=== PATIENT | female | born 1980 | race Caucasian/White ===

== ENCOUNTER 2019-06-05 00:46 | Day surgery (SDC) | payer MEDICARE, MEDICAID, SELFPAY ==
--- NOTE | 2019-06-04 17:43 | WPDANESEPP ---
Anes - Eval Pre Procedure Procedure: Operation Date: 06/05/19 10:30 Proposed Procedures p Excisional Biopsy Left Axillary Cystic Mass - Taty Alves MD Date/Time: 06/04/19 17:43 Pre Op Diagnosis: Left Axillary Mass Patient Data Age: 39 Gender: F Height: Weight: Allergies Allergy/AdvReac Type Severity Reaction Status Date / Time Penicillins Allergy Intermediate HIVES Verified 06/04/19 08:29 DUST MITES Allergy Mild unknown Uncoded 01/21/19 11:39 POLLENS Allergy Mild unknown Uncoded 01/21/19 11:39 [place] Allergy Mild unknown Uncoded 01/21/19 11:39 Home Medications Medication Instructions Recorded Confirmed Type glipizide 10 mg tablet 10 mg PO BID #180 tablet 01/09/19 05/31/19 Rx blood sugar diagnostic #10 each 01/17/19 05/31/19 History hydrocodone 5 mg-acetaminophen 325 1 tablet PO Q8H PRN 01/17/19 05/31/19 History mg tablet dulaglutide 1.5 mg/0.5 mL 1.5 mg SUB-Q WEEKLY ml 01/21/19 05/31/19 History subcutaneous pen injector gabapentin 300 mg capsule 300 mg PO QID PRN #240 cap 01/22/19 05/31/19 Rx blood-glucose meter,continuous #1 each 04/15/19 Rx cephalexin 500 mg capsule 1,000 mg PO Q12H #40 cap 05/31/19 05/31/19 Rx sulfamethoxazole 800 2 tablet PO Q12H 10 Days #40 tablet 05/31/19 05/31/19 Rx mg-trimethoprim 160 mg tablet Patient hx anesthesia problems: none Family hx anesthesia problems: none PMFSH Past Medical History Medical History Axillary mass Chronic back pain Diabetes Narcolepsy cataplexy syndrome ALAN (obstructive sleep apnea) Restless leg syndrome Smoker Surgical History Surgical History H/O tubal ligation History of appendectomy History of cholecystectomy History of tonsillectomy Family History Family History Father Heart disease Diabetes mellitus Mother Hypertension Unknown Hypertension Diabetes mellitus Social History Social History (Updated 06/04/19 @ 08:34 by Kristan Milian) Social History: pt smoke half a pack a day Smoking packs per day: 1 Smoking cigarettes per day: 20.0 Years smoked: 21 Smoking pack-years: 21.00 Smoking status: Current every day smoker Alcohol intake: never Substance use: never Substance use type: marijuana Additional occupation/education comments: disabled Exam Day of Procedure 06/04/19 17:43
[2019-06-05 08:30] VITALS: BP 125/73; PULSE 83; RESP 20; TEMP 36.3; O2SAT 100
--- NOTE | 2019-06-05 08:31 | ECG_ITS ---
Measurements Intervals [place] Rate: 82 P: 26 MI: 166 QRS: 28 QRSD: 105 T: 34 QT: 390 QTc: 457 Interpretive Statements SINUS RHYTHM DELAYED PRECORDIAL R/S TRANSITION BASELINE WANDER- V6 BORDERLINE ECG Electronically Signed On 06-05-2019 9:07:51 CDT by Luis Carlos Parikh D.O.
[2019-06-05 08:47] VITALS: BMI 35.1
[2019-06-05 09:15] LABS: Glucose Point of Care 295 (65-105)
[2019-06-05 09:32] LABS: Blood Urea Nitrogen 10 mg/dL (7-17); Calcium 8.9 mg/dL (8.4-10.2); Carbon Dioxide 24 mmol/L (22-30); Chloride 104 mmol/L (98-107); Estimated CRCL calculation 196 ml/min; Estimated Glomerular Filt Rate > 60; Glucose 310 mg/dL (65-105); Potassium 4.4 mmol/L (3.4-5.0); Sodium 135 mmol/L (137-145)
[2019-06-05] MEDS: LACTATED RINGERS 1,000 ML 30 ML IV CONT (09:51)
--- NOTE | 2019-06-05 10:05 | WPDANESEFPP ---
Anes - Eval Final PreProcedure Day of Procedure 06/05/19 10:05 Patient weight: obese Heart: regular rate and rhythm Lungs: decreased breath sounds Airway: Mallampati scale class II Neurological: alert and oriented Last oral intake: >/= 8 hours ASA classification: III Emergent: no Anesthetic plan: proceed Anesthesia type and monitoring: general GIVS and standard monitoring Informed Consent: The patient's anesthetic plan and its attendant risks and benefits were discussed with the patient/family/POA. Questions were solicited and answers provided to the satisfaction of the patient/family/POA.
--- NOTE | 2019-06-05 10:45 | WPDHPUPDATE1 ---
History and Physical Update Update Date/Time: 06/05/19 10:45 History and Physical has been reviewed, including an updated exam of the patient. There are NO changes in the patient's condition. Risks, benefits, and alternatives have been discussed and questions answered. Patient agrees to proceed with procedure.
[2019-06-05] MEDS: ceFAZolin 2 GM/D5W 50 ML 2 GM/50 ML BAG IVPB (10:49)
--- NOTE | 2019-06-05 11:16 | PM.PROC ---
Procedure Note - Detailed Date of procedure: 06/05/19 Pre-op diagnosis: Left Axillary Mass Post-op diagnosis: same Procedure performed: excisional biopsy left axillary mass measuring 3x2 cm Description of procedure: The patient was taken into the operating room and placed in the supine position. After adequate induction of general anesthesia, the patient was prepped and draped in the normal sterile fashion. A time-out was then done to verify the patient's identity as well as the procedure being performed. I began by localizing the area in and around the cystic mass in the left axilla. Once the area was locally anesthetized, I made an elliptical incision around this mass at the level of the dermis. The incision was then carried down into the subcutaneous tissue, where the majority of the mass was located. I was able to get around the mass in full and excise the cystic mass. The measurements of the specimen were approximately 4 x 2 cm. It will be sent to pathology for further review. I then copiously irrigated the wound. Hemostasis was gained with the Bovie cautery. The subcutaneous tissue was closed with 3 0 Vicryl suture. The skin was closed with 4 O Monocryl subcuticular suture. The patient tolerated the procedure and was awake and alert in the operating room postop. She was sent to the recovery room in stable condition. Anesthesia: MAC and local Surgeon: Taty Alves MD Estimated blood loss (mL): 5 Drains: No Packing: No Pathology: yes Complications: No immediate complications Condition: stable Disposition: PACU Findings: cystic mass L axilla
[2019-06-05] MEDS: BUPIVACAINE/EPINEPHRINE 0.5% 30 ML VIAL 20 ML INFILTRATE (11:18)
--- NOTE | 2019-06-05 11:20 | SUR.OPER ---
ebl:5CC
[2019-06-05 11:25] VITALS: BP 119/69; PULSE 82; RESP 20; O2SAT 93
[2019-06-05 11:29] LABS: Glucose Point of Care 286 (65-105)
[2019-06-05 11:55] VITALS: BP 130/86; PULSE 75; RESP 16
== END 2019-06-05 12:16 | disposition home or self-care (01) ==
PROVIDERS: Anesthesiology; PCP Family Medicine; Visit Provider Surgery
PROC: (CPT 11406; principal; 2019-06-05 10:30)
DX: L02.412 Cutaneous abscess of left axilla (principal); E11.9 Type 2 diabetes mellitus without complications; G47.33 Obstructive sleep apnea (adult) (pediatric); G25.81 Restless legs syndrome; G47.411 Narcolepsy with cataplexy; Z79.84 Long term (current) use of oral hypoglycemic drugs; F17.210 Nicotine dependence, cigarettes, uncomplicated
CPT/HCPCS: 11406; 12032; 36415; 80048; 88304; 88305; 93005; J0690; J2250; J2405; J2704; J3010; J7120

== ENCOUNTER 2020-02-10 09:53 | Outpatient (CLI) | payer MEDICARE, MEDICAID, SELFPAY ==
[2020-02-10 16:59] LABS: Basophils Absolute Auto 0.1 K/mm3 (0.0-0.1); Basophils Percent Auto 0.8 % (0.2-1.2); Eosinophils Absolute Auto 0.2 K/mm3 (0-0.3); Eosinophils Percent Auto 1.9 % (0-4.4); Hematocrit 43.7 % (37.0-47.0); Hemoglobin 14.7 g/dL (12.0-15.0); Immature Granulocyte Absolute 0.06 K/mm3 (0.00-0.031); Immature Granulocyte Percent A 0.6 % (0-0.5); Lymphocytes Absolute Auto 2.09 K/mm3 (0.9-3.2); Lymphocytes Percent Auto 19.9 % (18.3-44.2); Mean Corpuscular HGB Conc 33.6 g/dl (32-36); Mean Corpuscular Hemoglobin 30.6 pg (26-34); Mean Corpuscular Volume 90.9 fl (80-100); Mean Platelet Volume 10.8 fl (7.4-10.4); Monocytes Absolute Auto 0.5 K/mm3 (0.1-0.6); Monocytes Percent Auto 4.9 % (2.6-8.5); Neutrophils Absolute Auto 7.6 K/mm3 (1.3-6.7); Neutrophils Percent Auto 71.9 % (45.5-73.1); Platelet Count Result 249 k/mm3 (150-375); Red Blood Count 4.81 M/mm3 (4.2-5.4); Red Cell Distribution Width 14.6 % (11.5-14.5); White Blood Count 10.5 K/mm3 (4.5-10.0)
[2020-02-10 17:05] LABS: Alanine Aminotransferase 33 U/L (4-35); Albumin Level 3.9 g/dL (3.5-5.1); Alkaline Phosphatase 74 U/L (38-126); Anion Gap 10 mmol/L (8-16); Aspartate Amino Transferase 34 U/L (14-36); Bilirubin,Total 0.5 mg/dL (0.2-1.3); Blood Urea Nitrogen 9 mg/dL (7-17); Carbon Dioxide 27 mmol/L (22-30); Chloride 101 mmol/L (98-107); Cholesterol 129 mg/dL (0-200); Estimated Glomerular Filt Rate > 60; Glucose 259 mg/dL (65-105); HDL Direct 44 mg/dL; Potassium 4.1 mmol/L (3.4-5.0); Sodium 138 mmol/L (137-145); Triglycerides 143 mg/dL (<150)
[2020-02-10 17:07] LABS: Hemoglobin A1C 12.1 % (<5.7)
[2020-02-10 17:11] LABS: Add Urine Microscopic? YES; Appearance Urine Cloudy (Clear); Bacteria Urine Trace /hpf; Bilirubin Urine Negative (Negative); Blood Urine 1+ (Negative); Budding Yeast Urine Present /hpf; Color Urine Yellow (Yellow); Glucose Urine UA 3+ mg/dL (Negative); Ketones Urine Trace mg/dL (Negative); Leukocyte Esterase Ur 3+ LEU/UL (Negative); Nitrate Urine Positive (Negative); Protein Urine 1+ mg/dL (Negative); Squamous Epithelial Cell Urine Few /hpf (Few); Urobilinogen Urine Negative mg/dL (<2.0); WBC Clumps Urine Present /HPF; WBC Urine >75 /hpf
[2020-02-10 17:13] LABS: Specific Grav Ur 1.031 (1.001-1.035)
[2020-02-10 17:17] LABS: LDL Cholesterol Direct 76 mg/dL
[2020-02-10 17:19] LABS: Iron 73 ug/dL (37-170)
[2020-02-10 17:31] LABS: Percent Iron Saturation 21 % (20-50); Vitamin D 25 Hydroxy 19.7 ng/mL
[2020-02-10 17:36] LABS: Thyroid Stimulating Hormone 0.508 uIU/mL (0.465-4.680)
[2020-02-10 17:59] LABS: Creatinine Urine 50.4 mg/dL
[2020-02-10 18:04] LABS: MALB Creatinine Ratio 120.6 mg/g (0-30); Microalbumin Urine Random 60.8 mg/L (0-16.7)
[2020-02-10 18:10] LABS: Folic Acid 10.9 ng/mL (2.76->20)
[2020-02-15 06:35] LABS: C-Peptide 4.43 ng/mL (0.80-3.85); FSH 8.5 mIU/mL (***)
== END 2020-02-10 09:54 | disposition home or self-care (01) ==
PROVIDERS: PCP Family Medicine; Visit Provider Family Medicine
DX: Z79.899 Other long term (current) drug therapy (principal); B96.89 Other specified bacterial agents as the cause of diseases classified elsewhere; E11.42 Type 2 diabetes mellitus with diabetic polyneuropathy; G47.10 Hypersomnia, unspecified; J30.2 Other seasonal allergic rhinitis; J98.01 Acute bronchospasm; J01.90 Acute sinusitis, unspecified; L72.9 Follicular cyst of the skin and subcutaneous tissue, unspecified; R79.89 Other specified abnormal findings of blood chemistry
CPT/HCPCS: 36415; 80053; 80061; 81001; 82043; 82306; 82607; 82746; 83001; 83036; 83540; 83550; 84443; 84681; 85025; 87077; 87086; 87088; 87186

== ENCOUNTER 2020-09-02 09:43 | Outpatient (CLI) | payer MEDICARE, MEDICAID, SELFPAY ==
[2020-09-02 19:01] LABS: Add Urine Microscopic? YES; Appearance Urine Clear (Clear); Bilirubin Urine Negative (Negative); Blood Urine Negative (Negative); Color Urine Yellow (Yellow); Glucose Urine UA 3+ mg/dL (Negative); Ketones Urine 1+ mg/dL (Negative); Leukocyte Esterase Ur Negative LEU/UL (NEGATIVE); Nitrate Urine Negative (Negative); Protein Urine Negative (Negative); RBC Urine 0-2 /hpf (0-2); Squamous Epithelial Cell Urine Few /hpf (Few); Urobilinogen Urine Negative mg/dL (<2.0); WBC Urine 0-3 /hpf (0-3)
[2020-09-02 19:04] LABS: Basophils Absolute Auto 0.1 K/mm3 (0.0-0.1); Basophils Percent Auto 0.7 % (0.2-1.2); Eosinophils Absolute Auto 0.1 K/mm3 (0-0.3); Eosinophils Percent Auto 1.3 % (0-4.4); Hematocrit 44.1 % (37.0-47.0); Immature Granulocyte Absolute 0.04 K/mm3 (0.00-0.031); Immature Granulocyte Percent A 0.4 % (0-0.5); Lymphocytes Absolute Auto 2.16 K/mm3 (0.9-3.2); Lymphocytes Percent Auto 21.6 % (18.3-44.2); Mean Corpuscular HGB Conc 31.7 g/dl (32-36); Mean Corpuscular Hemoglobin 29.4 pg (26-34); Mean Corpuscular Volume 92.5 fl (80-100); Mean Platelet Volume 10.3 fl (7.4-10.4); Monocytes Absolute Auto 0.6 K/mm3 (0.1-0.6); Monocytes Percent Auto 5.5 % (2.6-8.5); Neutrophils Percent Auto 70.5 % (45.5-73.1); Platelet Count Result 246 k/mm3 (150-375); Red Blood Count 4.77 M/mm3 (4.2-5.4)
[2020-09-02 19:07] LABS: Cholesterol 113 mg/dL (0-200); HDL Direct 42 mg/dL; Lipase 152 U/L (23-300); Triglycerides 73 mg/dL (<150)
[2020-09-02 19:10] LABS: Alanine Aminotransferase 22 U/L (4-35); Albumin Level 4.1 g/dL (3.5-5.1); Alkaline Phosphatase 66 U/L (38-126); Anion Gap 11 mmol/L (8-16); Aspartate Amino Transferase 24 U/L (14-36); Bilirubin,Total 0.7 mg/dL (0.2-1.3); Blood Urea Nitrogen 12 mg/dL (7-17); Calcium 9.4 mg/dL (8.4-10.2); Carbon Dioxide 25 mmol/L (22-30); Chloride 101 mmol/L (98-107); Estimated Glomerular Filt Rate > 60; Glucose 207 mg/dL (65-110); Sodium 137 mmol/L (137-145)
[2020-09-02 19:18] LABS: LDL Cholesterol Direct 57 mg/dL
[2020-09-02 19:21] LABS: Creatinine Urine 77.4 mg/dL
[2020-09-02 19:22] LABS: Vitamin D 25 Hydroxy 26.1 ng/mL
[2020-09-02 19:25] LABS: MALB Creatinine Ratio 15.4 mg/g (0-30); Microalbumin Urine Random 11.9 mg/L (0-16.7)
[2020-09-02 19:28] LABS: Specific Grav Ur 1.037 (1.001-1.035)
[2020-09-07 20:51] LABS: Gliadin AB, IgG 3 Units (<20); Reticulin IgA Negative (Negative); TTG IGA AB 1 U/mL (<4); Tissue Transglutaminase IgA Ab 1 U/mL (<4)
[2020-09-11 00:07] LABS: Pancreatic Elastase, Stool >500 mcg/g
== END 2020-09-02 09:44 | disposition home or self-care (01) ==
PROVIDERS: PCP Family Medicine; Visit Provider Family Medicine
DX: R79.89 Other specified abnormal findings of blood chemistry (principal); Z51.81 Encounter for therapeutic drug level monitoring; Z79.899 Other long term (current) drug therapy; N39.0 Urinary tract infection, site not specified; E11.42 Type 2 diabetes mellitus with diabetic polyneuropathy; J30.2 Other seasonal allergic rhinitis; R19.7 Diarrhea, unspecified
CPT/HCPCS: 36415; 80053; 80061; 81001; 82043; 82306; 83036; 83516; 83690; 85025; 86255; 87077; 87086; 87088; 87186

== ENCOUNTER 2020-12-08 08:40 | Outpatient (CLI) | payer MEDICARE, MEDICAID, SELFPAY ==
[2020-12-08 18:57] LABS: Hemoglobin A1C 8.1 % (<5.7)
== END 2020-12-08 08:41 | disposition home or self-care (01) ==
PROVIDERS: PCP Family Medicine; Visit Provider Family Medicine
DX: E11.42 Type 2 diabetes mellitus with diabetic polyneuropathy (principal)
CPT/HCPCS: 36415; 83036

== ENCOUNTER 2021-01-18 10:05 | Outpatient (CLI) | payer MEDICARE, MEDICAID, SELFPAY ==
[2021-01-20 02:54] LABS: Amphetamines NEGATIVE ng/mL (<500); Barbiturates NEGATIVE ng/mL (<300); Benzodiazepines NEGATIVE ng/mL (<100); Cocaine Metabolite NEGATIVE ng/mL (<100); Marijuana Metabolite NEGATIVE ng/mL (<20); Methadone Metabolite NEGATIVE ng/mL (<100); Opiates NEGATIVE ng/mL (<100); Oxidant NEGATIVE mcg/mL (<200); pH 5.3 (4.5-9.0)
== END 2021-01-18 10:06 | disposition home or self-care (01) ==
PROVIDERS: PCP Family Medicine; Visit Provider Family Medicine
DX: G89.4 Chronic pain syndrome (principal)
CPT/HCPCS: 80299

== ENCOUNTER 2021-03-25 08:44 | Outpatient (CLI) | payer MEDICARE, MEDICAID, SELFPAY ==
[2021-03-25 19:32] LABS: Hemoglobin A1C 8.4 % (<5.7)
[2021-03-25 19:46] LABS: Creatinine Urine 62.3 mg/dL
[2021-03-25 19:51] LABS: MALB Creatinine Ratio 13.5 mg/g (0-30); Microalbumin Urine Random 8.4 mg/L (0-16.7)
== END 2021-03-25 08:45 | disposition home or self-care (01) ==
PROVIDERS: PCP Family Medicine; Visit Provider Family Medicine
DX: E11.9 Type 2 diabetes mellitus without complications (principal)
CPT/HCPCS: 36415; 82043; 83036

== ENCOUNTER 2021-06-23 08:00 | Outpatient (CLI) | payer MEDICARE, MEDICAID, SELFPAY ==
[2021-06-23 19:32] LABS: Albumin Level 4.1 g/dL (3.5-5.1); Anion Gap 10 mmol/L (8-16); Blood Urea Nitrogen 14 mg/dL (7-17); Calcium 8.7 mg/dL (8.4-10.2); Carbon Dioxide 27 mmol/L (22-30); Chloride 102 mmol/L (98-107); Cholesterol 139 mg/dL (0-200); Estimated Glomerular Filt Rate > 60; Glucose 273 mg/dL (65-110); HDL Direct 41 mg/dL; Potassium 4.2 mmol/L (3.4-5.0); Sodium 139 mmol/L (137-145); Triglycerides 158 mg/dL (<150)
[2021-06-23 19:40] LABS: Hemoglobin A1C 9.2 % (<5.7)
[2021-06-23 19:42] LABS: LDL Cholesterol Direct 75 mg/dL
[2021-06-23 19:50] LABS: Creatinine Urine 61.2 mg/dL
[2021-06-23 20:08] LABS: MALB Creatinine Ratio < 9.8 mg/g (0-30); Microalbumin Urine Random < 6.0 mg/L (0-16.7)
== END 2021-06-23 08:01 | disposition home or self-care (01) ==
PROVIDERS: PCP Family Medicine; Visit Provider Family Medicine
DX: R93.429 Abnormal radiologic findings on diagnostic imaging of unspecified kidney (principal); E11.9 Type 2 diabetes mellitus without complications; Z79.899 Other long term (current) drug therapy
CPT/HCPCS: 36415; 80061; 80069; 82043; 83036

== ENCOUNTER 2021-07-20 10:47 | Outpatient (CLI) | payer MEDICARE, MEDICAID, SELFPAY ==
--- NOTE | ~2021-07-20 | US_ITS ---
EXAMINATION: US renal BI DATE: 07/20/2021 11:42 INDICATION: Abnormal appearing right kidney on prior MRI. TECHNIQUE: Multiple ultrasound grayscale images of the kidneys were obtained. COMPARISON: None. FINDINGS: The right kidney measures 13.3 x 5.5 x 6.8 cm. The left kidney measures 13.5 x 6.8 x 5.6 cm. The kidn eys demonstrate normal echogenicity. 5-6 mm well-defined echogenic and nonshadowing nodule at the upp er pole of the right kidney. There is also a 1.9 cm anechoic right renal cyst. No other renal lesions identified. There is no hydronephrosis in either kidney. No stones identified. The bladder is ranulfo l bilateral ureteral jets seen on color Doppler.. IMPRESSION: 1. C5-6 millimeters echogenic nodule at the upper pole of the right kidney which is nonspecific but would be atypical appearance for a fat-containing angiomyolipoma. Recommend correlation with reported prior MRI which has not been provided for comparison. Reviewed, dictated and finalized at location A. IMPRESSION: 1. C5-6 millimeters echogenic nodule at the upper pole of the right kidney whi ch is nonspecific but would be atypical appearance for a fat-containing angiomy olipoma. Recommend correlation with reported prior MRI which has not been provi ded for comparison.
== END 2021-07-20 10:48 | disposition home or self-care (01) ==
PROVIDERS: PCP Family Medicine; Visit Provider Family Medicine
DX: R93.429 Abnormal radiologic findings on diagnostic imaging of unspecified kidney (principal)
CPT/HCPCS: 76775

== ENCOUNTER 2021-10-12 10:20 | Outpatient (CLI) | payer MEDICARE, MEDICAID, SELFPAY ==
[2021-10-12 19:29] LABS: Hemoglobin A1C 8.8 % (<5.7)
== END 2021-10-12 10:21 | disposition home or self-care (01) ==
PROVIDERS: PCP Family Medicine; Visit Provider Family Medicine
DX: E11.9 Type 2 diabetes mellitus without complications (principal)
CPT/HCPCS: 36415; 83036

== ENCOUNTER 2022-01-10 09:09 | Outpatient (CLI) | payer MEDICARE, MEDICAID, SELFPAY ==
[2022-01-10 20:52] LABS: Creatinine Urine 136.3 mg/dL
[2022-01-10 20:56] LABS: MALB Creatinine Ratio 10.6 mg/g (0-30); Microalbumin Urine Random 14.5 mg/L (0-16.7)
[2022-01-10 23:30] LABS: Hemoglobin A1C 10.1 % (<5.7)
== END 2022-01-10 09:10 | disposition home or self-care (01) ==
PROVIDERS: PCP Family Medicine; Visit Provider Family Medicine
DX: E11.9 Type 2 diabetes mellitus without complications (principal); Z79.899 Other long term (current) drug therapy; Z51.81 Encounter for therapeutic drug level monitoring
CPT/HCPCS: 36415; 82043; 83036

== ENCOUNTER 2022-04-18 12:59 | Outpatient (CLI) | payer MEDICARE, MEDICAID, SELFPAY ==
[2022-04-18 18:29] LABS: Hematocrit 49.1 % (37.0-47.0); Hemoglobin 16.5 g/dL (12.0-15.0); Mean Corpuscular HGB Conc 33.6 g/dl (32-36); Mean Corpuscular Hemoglobin 29.7 pg (26-34); Mean Corpuscular Volume 88.5 fl (80-100); Mean Platelet Volume 10.2 fl (7.4-10.4); Platelet Count Result 274 k/mm3 (150-375); Red Blood Count 5.55 M/mm3 (4.2-5.4); Red Cell Distribution Width 13.5 % (11.5-14.5); White Blood Count 13.7 K/mm3 (4.5-10.0)
[2022-04-18 20:20] LABS: Creatinine Urine 79.3 mg/dL
[2022-04-18 20:22] LABS: Alanine Aminotransferase 29 U/L (6-35); Albumin Level 4.8 g/dL (3.5-5.1); Alkaline Phosphatase 72 U/L (38-126); Anion Gap 9 mmol/L (8-16); Aspartate Amino Transferase 45 U/L (14-36); Bilirubin,Total 0.7 mg/dL (0.2-1.3); Blood Urea Nitrogen 14 mg/dL (7-17); Calcium 9.2 mg/dL (8.4-10.2); Carbon Dioxide 29 mmol/L (22-30); Chloride 102 mmol/L (98-107); Cholesterol 139 mg/dL (0-200); Estimated Glomerular Filt Rate > 60; Glucose 118 mg/dL (65-110); HDL Direct 41 mg/dL; Potassium 3.7 mmol/L (3.4-5.0); Sodium 140 mmol/L (137-145); Triglycerides 90 mg/dL (<150)
[2022-04-18 20:28] LABS: MALB Creatinine Ratio 11.9 mg/g (0-30); Microalbumin Urine Random 9.4 mg/L (0-16.7)
[2022-04-18 20:33] LABS: LDL Cholesterol Direct 76 mg/dL
[2022-04-18 20:43] LABS: Hemoglobin A1C 7.5 % (<5.7)
== END 2022-04-18 13:00 | disposition home or self-care (01) ==
PROVIDERS: PCP Family Medicine; Visit Provider Family Medicine
DX: Z00.00 Encounter for general adult medical examination without abnormal findings (principal); E11.42 Type 2 diabetes mellitus with diabetic polyneuropathy; G62.9 Polyneuropathy, unspecified
CPT/HCPCS: 36415; 80053; 80061; 82043; 83036; 85027

== ENCOUNTER 2022-04-27 09:52 | Outpatient (CLI) | payer MEDICARE, MEDICAID, SELFPAY ==
[2022-04-27 19:56] LABS: Basophils Absolute Auto 0.1 K/mm3 (0.0-0.1); Basophils Percent Auto 0.7 % (0.2-1.2); Eosinophils Absolute Auto 0.2 K/mm3 (0-0.3); Eosinophils Percent Auto 1.7 % (0-4.4); Hemoglobin 15.8 g/dL (12.0-15.0); Immature Granulocyte Absolute 0.05 K/mm3 (0.00-0.031); Immature Granulocyte Percent A 0.5 % (0-0.5); Lymphocytes Absolute Auto 2.17 K/mm3 (0.9-3.2); Lymphocytes Percent Auto 20.3 % (18.3-44.2); Mean Corpuscular HGB Conc 32.9 g/dl (32-36); Mean Corpuscular Hemoglobin 29.9 pg (26-34); Mean Corpuscular Volume 90.7 fl (80-100); Mean Platelet Volume 10.5 fl (7.4-10.4); Monocytes Absolute Auto 0.6 K/mm3 (0.1-0.6); Monocytes Percent Auto 5.8 % (2.6-8.5); Neutrophils Absolute Auto 7.6 K/mm3 (1.3-6.7); Platelet Count Result 253 k/mm3 (150-375); Red Blood Count 5.29 M/mm3 (4.2-5.4); White Blood Count 10.7 K/mm3 (4.5-10.0)
[2022-04-27 20:22] LABS: Alanine Aminotransferase 26 U/L (6-35); Albumin Level 4.4 g/dL (3.5-5.1); Alkaline Phosphatase 81 U/L (38-126); Aspartate Amino Transferase 57 U/L (14-36); Bilirubin,Total 0.5 mg/dL (0.2-1.3)
== END 2022-04-27 09:53 | disposition home or self-care (01) ==
LOC: ANHBWCLAB 09:54
PROVIDERS: PCP Family Medicine; Visit Provider Family Medicine
DX: Z00.00 Encounter for general adult medical examination without abnormal findings (principal); G89.4 Chronic pain syndrome; G62.9 Polyneuropathy, unspecified; E11.42 Type 2 diabetes mellitus with diabetic polyneuropathy; G47.10 Hypersomnia, unspecified; R74.01 Elevation of levels of liver transaminase levels; D75.1 Secondary polycythemia; G25.81 Restless legs syndrome; F17.200 Nicotine dependence, unspecified, uncomplicated
CPT/HCPCS: 36415; 80076; 85025

== ENCOUNTER 2022-07-27 10:44 | Outpatient (CLI) | payer MEDICARE, MEDICAID, SELFPAY ==
[2022-07-27 20:44] LABS: Alanine Aminotransferase 28 U/L (6-35); Albumin Level 4.4 g/dL (3.5-5.1); Alkaline Phosphatase 94 U/L (38-126); Anion Gap 7 mmol/L (8-16); Aspartate Amino Transferase 45 U/L (14-36); Bilirubin,Total 0.4 mg/dL (0.2-1.3); Blood Urea Nitrogen 12 mg/dL (7-17); Calcium 8.9 mg/dL (8.4-10.2); Carbon Dioxide 28 mmol/L (22-30); Chloride 102 mmol/L (98-107); Cholesterol 140 mg/dL (0-200); Estimated Glomerular Filt Rate > 60; Glucose 272 mg/dL (65-110); HDL Direct 48 mg/dL; Sodium 137 mmol/L (137-145); Triglycerides 69 mg/dL (<150)
[2022-07-27 21:03] LABS: Creatinine Urine 82.5 mg/dL
[2022-07-27 21:09] LABS: MALB Creatinine Ratio 10.5 mg/g (0-30); Microalbumin Urine Random 8.7 mg/L (0-16.7)
[2022-07-27 21:32] LABS: Vitamin D 25 Hydroxy 36.8 ng/mL
[2022-07-27 22:02] LABS: LDL Cholesterol Direct 86 mg/dL
[2022-07-27 22:26] LABS: Hemoglobin A1C 9.6 % (<5.7)
== END 2022-07-27 10:45 | disposition home or self-care (01) ==
PROVIDERS: PCP Family Medicine; Visit Provider Nurse Practitioner Adult Health
DX: E11.9 Type 2 diabetes mellitus without complications (principal); E55.9 Vitamin D deficiency, unspecified
CPT/HCPCS: 36415; 80053; 80061; 82043; 82306; 83036

== ENCOUNTER 2022-11-29 11:15 | Outpatient (CLI) | payer MEDICARE, MEDICAID, SELFPAY ==
[2022-11-29 19:00] LABS: Hematocrit 47.6 % (37.0-47.0); Hemoglobin 15.4 g/dL (12.0-15.0); Mean Corpuscular HGB Conc 32.4 g/dl (32-36); Mean Corpuscular Hemoglobin 29.8 pg (26-34); Mean Corpuscular Volume 92.2 fl (80-100); Platelet Count Result 248 k/mm3 (150-375); Red Blood Count 5.16 M/mm3 (4.2-5.4); Red Cell Distribution Width 13.7 % (11.5-14.5); White Blood Count 12.5 K/mm3 (4.5-10.0)
[2022-11-29 19:19] LABS: Alanine Aminotransferase 21 U/L (6-35); Albumin Level 4.7 g/dL (3.5-5.1); Alkaline Phosphatase 73 U/L (38-126); Anion Gap 7 mmol/L (8-16); Aspartate Amino Transferase 55 U/L (14-36); Bilirubin,Total 0.7 mg/dL (0.2-1.3); Blood Urea Nitrogen 17 mg/dL (7-17); Calcium 9.7 mg/dL (8.4-10.2); Carbon Dioxide 28 mmol/L (22-30); Chloride 103 mmol/L (98-107); Cholesterol 151 mg/dL (0-200); Estimated Glomerular Filt Rate > 60; Glucose 216 mg/dL (65-110); HDL Direct 51 mg/dL; Potassium 4.2 mmol/L (3.4-5.0); Sodium 138 mmol/L (137-145); Triglycerides 74 mg/dL (<150)
[2022-11-29 19:30] LABS: LDL Cholesterol Direct 81 mg/dL
[2022-11-29 19:34] LABS: Creatinine Urine 155.8 mg/dL
[2022-11-29 19:39] LABS: MALB Creatinine Ratio 7.7 mg/g (0-30)
[2022-11-29 19:47] LABS: Vitamin D 25 Hydroxy 38.3 ng/mL
[2022-11-29 20:54] LABS: Hemoglobin A1C 8.3 % (<5.7)
== END 2022-11-29 11:16 | disposition home or self-care (01) ==
PROVIDERS: PCP Nurse Practitioner Adult Health; Visit Provider Nurse Practitioner Adult Health
DX: E55.9 Vitamin D deficiency, unspecified (principal); D75.1 Secondary polycythemia; E11.9 Type 2 diabetes mellitus without complications
CPT/HCPCS: 36415; 80053; 80061; 82043; 82306; 83036; 85027

== ENCOUNTER 2023-07-24 15:31 | Outpatient (CLI) | payer MEDICARE, MEDICAID, SELFPAY ==
[2023-07-24 18:59] LABS: Hematocrit 46.3 % (37.0-47.0); Hemoglobin 15.6 g/dL (12.0-15.0); Mean Corpuscular HGB Conc 33.7 g/dl (32-36); Mean Corpuscular Hemoglobin 29.8 pg (26-34); Mean Corpuscular Volume 88.5 fl (80-100); Mean Platelet Volume 11.4 fl (7.4-10.4); Platelet Count Result 233 k/mm3 (150-375); Red Blood Count 5.23 M/mm3 (4.2-5.4); Red Cell Distribution Width 13.2 % (11.5-14.5); White Blood Count 11.6 K/mm3 (4.5-10.0)
[2023-07-24 19:32] LABS: MALB Creatinine Ratio 7.6 mg/g (0-30); Microalbumin Urine Random 11.9 mg/L (0-16.7)
[2023-07-24 19:33] LABS: Alanine Aminotransferase 32 U/L (6-35); Albumin Level 4.7 g/dL (3.5-5.1); Alkaline Phosphatase 81 U/L (38-126); Anion Gap 10 mmol/L (4-12); Aspartate Amino Transferase 55 U/L (14-36); Bilirubin,Total 0.6 mg/dL (0.2-1.3); Blood Urea Nitrogen 14 mg/dL (7-17); Calcium 9.9 mg/dL (8.4-10.2); Carbon Dioxide 26 mmol/L (22-30); Chloride 102 mmol/L (98-107); Cholesterol 144 mg/dL (0-200); Estimated Glomerular Filt Rate > 60; Glucose 310 mg/dL (65-110); HDL Direct 50 mg/dL; Potassium 4.2 mmol/L (3.4-5.0); Sodium 138 mmol/L (137-145); Triglycerides 116 mg/dL (<150)
[2023-07-24 19:44] LABS: LDL Cholesterol Direct 83 mg/dL
[2023-07-27 17:28] LABS: Amphetamines NEGATIVE ng/mL (<500); Barbiturates NEGATIVE ng/mL (<300); Benzodiazepines NEGATIVE ng/mL (<100); Cocaine Metabolite NEGATIVE ng/mL (<150); Marijuana Metabolite 19 ng/mL (<5); Methadone Metabolite NEGATIVE ng/mL (<100); Opiates NEGATIVE ng/mL (<100); Oxidant NEGATIVE mcg/mL (<200); pH 5.4 (4.5-9.0)
== END 2023-07-24 15:32 | disposition home or self-care (01) ==
LOC: ANHBWCLAB 15:33
PROVIDERS: PCP Family Medicine; Visit Provider Family Medicine
DX: E11.9 Type 2 diabetes mellitus without complications (principal)
CPT/HCPCS: 36415; 80053; 80061; 80299; 82043; 83036; 85027

== ENCOUNTER 2023-07-29 13:04 | Emergency (ER) | payer MEDICARE, MEDICAID, SELFPAY ==
--- NOTE | ~2023-07-29 | XR_ITS ---
XR wrist LT min 3V DATE: 07/29/2023 13:37 INDICATION: Struck wrist against car. Bilateral carpal pain. TECHNIQUE: 4 views COMPARISON: None FINDINGS: Mild spurring at the first carpometacarpal joint consistent with mild osteoarthritis. No fracture, dislocation, periosteal reaction or bone destruction. No erosive change or chondrocalcin osis. IMPRESSION: No fracture or dislocation Mild osteoarthritis of first carpometacarpal joint Reviewed, dictated and finalized at location A.
[2023-07-29 13:18] VITALS: BP 124/76; PULSE 93; RESP 16; TEMP 36.1; O2SAT 99
--- NOTE | 2023-07-29 14:18 | ED.GENADULT ---
HPI - General Adult General Chief complaint: Extremity Injury, Upper Stated complaint: Left Wrist Pain Time Seen by Provider: 07/29/23 14:18 Source: patient, RN notes reviewed and old records reviewed Mode of arrival: ambulatory Limitations: no limitations History of Present Illness HPI narrative: 43-year-old female to [facility] for complaint of left wrist pain. Patient states that she has an appointment with her primary care provider for cortisone injections to her bilateral wrists in a couple of weeks. Patient states that today she accidentally struck her left wrist on the door handle of her vehicle. Patient endorsing limited range of motion. Patient in no acute distress. Related Data Allergies Allergy/AdvReac Type Severity Reaction Status Date / Time Penicillins Allergy Intermediate HIVES Verified 07/29/23 13:23 metformin Allergy Unknown Diarrhea Verified 07/29/23 13:23 pollen extracts Allergy Unknown Unknown Verified 07/29/23 13:27 lactose Allergy Diarrhea Verified 07/29/23 13:23 Review of Systems Review of Systems: All systems reviewed & are unremarkable except as noted in HPI and below Constitutional: Constitutional: Reports no additional constitutional complaints Eyes: Eyes: Reports no additional eye complaints ENT: Reports system reviewed and no additional complaints, except as documented Cardiovascular: Cardiovascular: Reports no additional cardiovascular complaints, Denies chest pain and Denies dyspnea Respiratory: Respiratory: Reports no additional respiratory complaints, Denies cough and Denies dyspnea Musculoskeletal: Musculoskeletal: Reports no additional musculoskeletal complaints Neurologic: Reports system reviewed and no additional complaints, except as documented Psychiatric: Psychiatric: Reports no additional psychiatric complaints PMFSH Past Medical History Medical History Axillary mass Chronic back pain Diabetes Ear pain Narcolepsy cataplexy syndrome Restless leg syndrome Smoker Surgical History Surgical History H/O tubal ligation History of appendectomy History of cholecystectomy History of tonsillectomy Family History Family History Father Heart disease Diabetes mellitus Mother Hypertension Unknown Hypertension Diabetes mellitus Mother Hypertension Sibling Diabetes mellitus Father Acute myocardial infarction Other Family history of attention deficit hyperactivity disorder (ADHD) Family history of autism Social History Social History Social History: Currently smoking half pack per day. Smoking packs per day: 1 Smoking cigarettes per day: 20.0 Years smoked: 21 Smoking pack-years: 21.00 Smoking status: Current every day smoker Second hand tobacco smoke exposure: Yes Alcohol intake: never Substance use: never Substance use type: marijuana Lack of Transportation: No Lack of Food: Never True Current Housing: I Have Housing Concerned About Future Housing: YES Difficulty Paying Gas/Electric Bills: YES Difficulty Paying for Meds: No Currently Unemployed: No Education: High School Diploma/GED Difficulty w/ Childcare or Family Care: No Living arrangements: with family Occupation/Education: other Additional occupation/education comments: disabled Gender identity (if verbalized by the patient): Female Comments At the time of my signature, I reviewed and agree with the nursing past medical, surgical, social, and family history. There is no relevant family history pertinent to the patient complaint. Exam Const: General: cooperative, healthy appearing, comfortable, no acute distress, alert and well nourished Nutritional Appearance: well nourished Orientation/consciousness: patient oriented x3 Limitations: no limitations HENMT: Head: normal to inspec
== END 2023-07-29 14:30 | disposition home or self-care (01) ==
PROVIDERS: Emergency Provider Nurse Practitioner Family; PCP Family Medicine
DX: S60.212A Contusion of left wrist, initial encounter (principal); W22.8XXA Striking against or struck by other objects, initial encounter; F17.210 Nicotine dependence, cigarettes, uncomplicated; E11.9 Type 2 diabetes mellitus without complications; Z79.84 Long term (current) use of oral hypoglycemic drugs; Z79.4 Long term (current) use of insulin; G25.81 Restless legs syndrome; G47.411 Narcolepsy with cataplexy
CPT/HCPCS: 73110; 99213; G0463

== ENCOUNTER 2024-03-07 07:48 | Outpatient (CLI) | payer MEDICARE, MEDICAID, SELFPAY ==
--- OUTSIDE RECORDS SUMMARY | 2024-03-07 07:54 | XMS_ITS | Clinical Summary ---
Author Organization [facility] Address [address] [place] [address] Care Team Providers Care Sealing Machine Operator Name Role Phone fYn Martínez Romain DPM Unavailable [phone] Moris Lima MD Primary Care Provider [phone] Allergies Active Allergy Reactions Criticality Noted Date Comments Lactose Diarrhea Low Penicillins Hives,Rash Medium 08/08/2018 Reaction: Hives, ??Skin Rash, ??, , All cillins Medications HYDROcodone-kylie taminophen (VICODIN) 5-300 mg per tablet take 1 tablet by oral route every 4 - 6 hours as needed for pain 0 0 6 Active glipiZIDE (GLUCOTROL) 5 mg tabletIndicatio ns:type 2 diabetes mellitus Take 5 mg by mouth 2 (two) times a day before breakfast and lunch Active acarbose (PRECOSE) 25 mg tablet TAKE 1 TABLET BY MOUTH THREE TIMES DAILY AT THE START OF EACH MEAL 1 Active Trulicity 1.5 mg/0.5 mL pen injector ADMINISTER 1.5 MG UNDER THE SKIN WEEKLY 1 Active gabapentin (NEURONTIN) 300 mg capsule TAKE 1 CAPSULE BY MOUTH FOUR TIMES DAILY NEEDED FOR NERVE PAIN 1 Active modafiniL (PROVIGIL) 200 mg tabletIndicatio ns:Narcolepsy Syndrome Take 100 mg by mouth daily 1 Active empagliflozin (JARDIANCE) 10 mg tabletIndicatio ns:type 2 diabetes mellitus Take 10 mg by mouth daily Active doxycycline (ADOXA) 100 mg tablet Take 100 mg by mouth 2 (two) times a day 1 Active FLUoxetine (PROzac) 40 mg capsule 1 Active meloxicam (MOBIC) 7.5 mg tablet Take 1 tablet (7.5 mg total) by mouth 2 (two) times a day with meals for 15 days 30 tablet 4 Active methocarbamoL (ROBAXIN) 500 mg tablet Take 1 tablet (500 mg total) by mouth 2 (two) times a day 20 tablet 4 Active Active Problems Problem Noted Date Diagnosed Date 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 Continue vancomycin, cefepime and Flagyl. Patient has elevated ESR and CRP. MRI was ordered to rule out osteo. Podiatry was consulted. Continue p.r.n. pain control. Patient states the swelling and pain has already improved. Cutaneous abscess of right axilla 10/01/2019 Assessment & Plan (10/01/2019 11:09 AM CDT): We discussed in office incision and drainage. Will also obtain culture. Discussed wound care. Follow up in one week. Patient agrees to the treatment plan. Will also send in another week of bactrim. Narcolepsy 08/14/2018 Assessment & Plan (08/11/2020 3:32 AM CDT): Continue Provigil Diabetic peripheral neuropathy (CMS/HCC) 019 Assessment & Plan (08/11/2020 3:32 AM CDT): Continue gabapentin Restless leg syndrome 08/13/2018 Smoker 08/13/2018 Assessment & Plan (08/11/2020 3:32 AM CDT): Patient smokes half a pack to 1 pack per day and has done so since age 15 or 16. Will order patient nicotine patch. Type 2 diabetes mellitus wit h hyperglycemia, without long-term current use of insulin 08/13/2018 Assessment & Plan (08/11/2020 3:31 AM CDT): Patient is on acarbose, Trulicity and Jardiance. Sugars are uncontrolled likely secondary to infection. Will monitor on a mid dose sliding scale. Will adjust as needed. Cellulitis of right foot 08/06/2018 Somatic symptom disorder, pe rsistent, severe, with predominant pain 03/16/2018 Degenerative disorder 04/10/2014 Overview (05/13/2016): Degenerative disorder Chronic pain syndrome 12/16/2013 Overview (06/17/2020): Fibromyalgia Assessment & Plan (08/11/2020 3:31 AM CDT): Patient is on hydrocodone 5 mg t.i.d. p.r.n. at home. Patient is now receiving oxycodone p.r.n. for her foot pain, will hold hydrocodone at this time. Resolved Problems Problem Noted Date Diagnosed Date Resolved Date Hypokalemia 08/14/2020 08/16/2020 Sepsis, unspecified organism 08/13/2018 08/15/2020 Surgical History Surgery Date Site/Laterality Comments TONSILLECTOMY Tonsillectomy CHOLECYSTECTOMY Cholecystectomy APPENDECTOMY Appendectomy TUBAL LIGATION tubal ligation OTHER SURGICAL HISTORY 02/06/1998 - 02/05/1999 : 12 hr labor OTHER SURGICAL HISTORY 02/06/2002 - 02/05/2003 : 6 hr labor TUBAL LIGATION Tubal ligation OTHER SURGICAL HISTORY 02/06/2015 - 02/06/2016 Menorrhagia: Hysteroscopic polypectomy, Novasure endom. ablation FOOT SURGERY 02/06/2018 - 02/05/2019 Right Glass removal/infection Medical History Medical History Date Comments Hx Other Medical Headache, migra ine Hx Other Medical back pain Hx Other Medical ; Outc ome: 8lb(s) 7 oz Female Hx Other Medical ; Outc ome: 7lb(s) 8 oz Male Hx Other Medical Menorrhagia Diabetes mellitus (HCC) PONV (postoperative nausea and vomiting) Obesity Depression Cataplexy and narcolepsy Type 2 diabetes mellitus (HCC) Family History Medical History Relation Name Comments Diabetes Father Hypertension Mother Hypertension Other 1 Family history of Hypertension; Mental illness Other 2 Family histor y of Mental illness; Arthritis Other 3 Family history of arthritis; Kidney disease Other 4 Family histor y of kidney problems; Relation Name Status Comments Father Mother Other 1 Other 2 Other 3 Other 4 Social History Tobacco Use Types Packs/Day Years Used Date Smoking Tobacco: Heavy Smoker Cigarettes Smokeless Tobacco: Never Tobacco Cessation:Ready to Q uit: No; Counseling Given: Yes Comments:Smoking History Packs/day: 10 Cigarettes Alcohol Use Standard Drinks/Week Comments No 0 (1 standard drink = 0.6 oz pur e alcohol) AUDIT-C Answer Date Recorded Q1: How often do you have a drink containing alc ohol? Never 08/13/2020 Average Number of Drinks Not on file 021 Frequency of Binge Drinking Not on file 09/2020 PHQ-2 Answer Date Recorded PHQ-2 Total Score (If total score is 3 or more points, staff should administer the PHQ-9) 0 08/16/2020 Personal Safety Answer Date Recorded Have you ever been in or are you currently in a harmful physical or emotional relationship or is someone making you feel afraid or unsafe? Denies 07/31/2023 Comments No Sex and Gender Information Value Date Recorded Sex Assigned at Not on file Legal Sex Female 3:28 AM ARCHERY EQUIPMENT REPAIRER Gender Identity Not on file Sexual Orientation Not on file Obstetrics History Last Filed Vital Signs Vital Sign Reading Time Taken Comments Blood Pressure 143/84 07/31/2023 1:44 PM CDT Pulse 86 07/31/2023 1:44 PM CDT Temperature 36.9 ??C (98.4 ??F) 07/31/2023 1:44 PM CD T Respiratory Rate 18 07/31/2023 1:44 PM CDT Oxygen Saturation 100% 07/31/2023 1:44 PM CDT Inhaled Oxygen Concentration - - Weight 104.8 kg (231 lb) 07/31/2023 1:44 PM CDT Height 175.3 cm (5' 9 ) 09/28/2020 9:34 AM CDT Body Mass Index 34.11 09/28/2020 9:34 AM CDT Plan of Treatment Health Maintenance Due Date Last Done Comments Albumin Creatinine Ratio, Urine 1978 Breast Cancer Screening-Mammogram 1978 Cervical Cancer Screening 1978 Colon Cancer Screening-Colonoscopy 1978 Hepatitis C Screening 1978 Dilated Eye Exam 1978 Foot Exam 1978 Lipid Panel 1978 Pneumococcal vaccine <65 (1 of 2 - PCV) 01/09/1984 Hepatitis B Screening 01/09/1996 Regular Well Visit/Exam 18-64 01/09/1996 Hemoglobin A1C 10/15/2017 04/14/2017 Depression Screening 08/10/2021 08/10/2020 eGFR 08/16/2021 08/16/2020, 08/06, 08/14/2020, Additional history exists DTaP/Tdap/Td Vaccine (2 - Td or Tdap) 07/07/2022 07/07/2012 Influenza Vaccine (#1) 2023 HPV Vaccines Aged Out No longer eligi ble based on patient's age to complete this topic Procedures Procedure Name Priority Date/Time Associated Diagnosis Comments EGFR Routine 08/16/2020 5:59 AM CDT HEMOGLOBIN A1C Routine 04/14/2017 12:19 PM ARCHERY EQUIPMENT REPAIRER from Last 3 Months or Most Recently Relevant to Health Maintenance Results * eGFR (08/16/2020 5:59 AM CDT) eGFR 122 mL/min/1.7 3 m2 HERON HUGGINS (EDU) Comment: Interpretive Data Reference Interval Normal ?>/= 90 mL/min/1.73m2 Mildly decreased* ? 60 - 89 mL/min/1.73m2 Mildly to moderately decreased ?45 - 59 mL/min/1.73m2 Moderately to severely decreased ??30 - 44 mL/min/1.73m2 Severely decreased ?15 - 29 mL/min/1.73m2 Kidney Failure ?< 15 ??mL/min/1.73m2 *Relative to young adult level Estimated glomerular filtration rate is determined by the CKD-EPI equation recommended by the National Kidney Foundation (KDIGO 2012 Clinical Practice Guideline for the Evaluation and Management of Chronic Kidney Disease. Kidney Intnl Suppl Feb 2012;3:1). The CKD-EPI equation should not be used for patients with unstable renal function and has not been validated in children and those over 70. Current interpretive data was last reviewed 2020 Blood specimen (specimen) 08/16/2020 5:59 AM CDT 08/16/2020 7:59 AM CDT us Jinny Ramires MD LAB BLOOD ORDERABLES Final Resu lt Performing Organization Address [facility]/ZIP Co de Phone Number HERON HUGGINS ([place]) 1 [facility] [place] [address] * (ABNORMAL) Hemoglobin A1c (04/14/2017 12:19 PM ARCHERY EQUIPMENT REPAIRER) Hgb A1C 11.5(H) 4.0 - 5.6 % HERON HUGGINS (EDU) Estimated Average Glucose 283 mg/dL HERON HUGGINS (EUD) Comment: The ADA recommends reporting an estimated Average Glucose (eAG) with all Hemoglobin A1c results using the equation derived from a study of 507 normal and diabetic adults. ??Minority populations were underrepresented and children were not included. ?? (Diabetes Care 31:1224-4555, 2008). ??The eAG is not equivalent to a fasting glucose. Blood specimen (specimen) 04/14/2017 12:19 PM ARCHERY EQUIPMENT REPAIRER 04/14/2017 12:26 PM ARCHERY EQUIPMENT REPAIRER Narrative HERON HUGGINS (EDU) - 04/14/2017 12:58 PM ARCHERY EQUIPMENT REPAIRER us Pepe Monaco MD LAB BLOOD ORDERABLES Final Result Performing Organization Address City/[facility]/ZIP Co de Phone Number HERON HUGGINS ([place]) 1 [facility] [place] [address] from Last 3 Months or Most Recently Relevant to Health Maintenance Insurance [facility] MEDICARE [facility] Address: [address] [address] [place] [address] MEDICARE [facility] MEDICARE [facility] Address: [address] [address] [place] [address] [place] AETNA [facility] Advance Directives For more information, please contact: [phone] * Full Code (Latest Code Status on File) Date Activated Date Inactivated Comments 08/10/2020 10:48 PM 08/16/2020 7:24 PM Care Teams Sealing Machine Operator Relationship Specialty Start Date End Date Moris Lima MD PCP - General Family Practice 07/31/23 Yfn Martínez DPM Consulting Physician Podiatry 08/16/20
--- OUTSIDE RECORDS SUMMARY | 2024-03-07 07:54 | XMS_ITS | Referral Summary ---
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 Gender Identity Not on file Sexual Orientation Not on file Last Filed Vital Signs Vital Sign Reading [...] 09/28/2020 9:34 AM CDT Plan of Treatment Not on file Procedures Procedure Name Priority Date/Time Associated Diagnosis Comments EGFR Routine 08/16/2020 5:59 AM CDT HEMOGLOBIN A1C Routine 04/14/2017 12:19 PM DISTRICT ATTORNEY from Last 3 Months or Most Recently [...] ORDERABLES Final Resu lt Performing Organization Address [facility] Co de Phone Number HERON HUGGINS ([place]) 1 [facility] [place] [address] * (ABNORMAL) Hemoglobin A1c (04/14/2017 12:19 PM DISTRICT ATTORNEY) Hgb A1C 11.5(H) 4.0 - 5.6 % HERON HUGGINS ([facility]) Estimated Average Glucose 283 mg/dL HERON HUGGINS ([facility]) Comment: The ADA recommends reporting an estimated Average Glucose (eAG) with all Hemoglobin A1c results using the equation derived from a study of 507 normal and diabetic adults. ??Minority populations were underrepresented and children were not included. ?? (Diabetes Care 31:4294-5053, 2008). ??The eAG is not equivalent to a fasting glucose. Blood specimen (specimen) 04/14/2017 12:19 PM DISTRICT ATTORNEY 04/14/2017 12:26 PM DISTRICT ATTORNEY Narrative HERON HUGGINS (EDU) - 04/14/2017 12:58 PM DISTRICT ATTORNEY us Pepe Monaco MD LAB BLOOD ORDERABLES Final Result Performing Organization Address [facility]/ZIP Co de Phone Number HERON HUGGINS ([place]) 1 [facility] [address] from Last 3 Months or Most Recently Relevant to Health Maintenance Insurance [facility] MEDICARE MEDICARE [employer] MEDICARE [place] [employer]ETNA [facility] Advance Directives For more information, please contact: [phone] * Full Code (Latest Code Status on File) Date Activated Date Inactivated Comments 08/10/2020 10:48 PM 08/16/2020 7:24 PM Care Teams Informatics Analyst Relationship Specialty Start Date End Date Moris Lima MD PCP - General Family Practice 07/31/23 Yfn Martínez DPM Consulting Physician Podiatry 08/16/20
--- OUTSIDE RECORDS SUMMARY | 2024-03-07 07:54 | XMS_ITS | Clinical Summary ---
Author Organization [facility] Address [facility] [place] [address] [place] [address] Care Team Providers Care Certified Veterinary Technician Name Role Phone Unavailable Primary Care Provider Unavailabl e Allergies Active Allergy Reactions Criticality Noted Date Comments Penicillins Hives 02/08/2021 Medications glipiZIDE 10 MG tablet Take 10 mg by mouth every morning before breakfast. Active gabapentin 300 MG capsule Take 300 mg by mouth 2 (two) times a day. Active acarbose 25 MG Tab Take 1 tablet by mouth 2 (two) times a day. Active Dulaglutide (TRULICITY) 3 MG/0.5ML Solution Pen-injector Inject 3 mg into the skin weekly. On Monday Active modafinil 200 MG tablet Take 200 mg by mouth daily. Active FLUoxetine 40 MG capsule Take 40 mg by mouth daily. 01/20/2021 Active HYDROcodone-kylie taminophen 5-325 MG tablet Take 1 tablet by mouth every 8 (eight) hours as needed. 01/22/2021 Active meloxicam 15 MG tablet Take 15 mg by mouth daily. 04/22/2020 Active Active Problems No known active problems Family History Medical History Relation Comments Diabetes Brother Heart Disease Father Hyperlipidemia Mother Relation Status Comments Brother Father Alive Mother Alive Sister Alive Social History Tobacco Use Types Packs/Day Years Used Date Smoking Tobacco: Every Day Cigarettes 0.5 30 Smokeless Tobacco: Never Alcohol Use Standard Drinks/Week Comments Yes 0 (1 standard drink = 0.6 oz pur e alcohol) rarely Comments No Sex and Gender Information Value Date Recorded Sex Assigned at Not on file Legal Sex Female 4:17 PM PASTING INSPECTOR Gender Identity Not on file Sexual Orientation Not on file Last Filed Vital Signs Vital Sign Reading Time Taken Comments Blood Pressure 127/72 02/23/2021 9:30 AM PASTING INSPECTOR Pulse 92 02/23/2021 9:30 AM PASTING INSPECTOR Temperature 35.9 ??C (96.6 ??F) 02/23/2021 9:20 AM CS T Respiratory Rate 18 02/23/2021 9:30 AM PASTING INSPECTOR Oxygen Saturation 98% 02/23/2021 9:30 AM PASTING INSPECTOR Inhaled Oxygen Concentration - - Weight 107 kg (236 lb) 02/08/2021 8:16 AM PASTING INSPECTOR Height 177.8 cm (5' 10 ) 02/08/2021 8:16 AM PASTING INSPECTOR Body Mass Index 33.86 02/08/2021 8:16 AM PASTING INSPECTOR Plan of Treatment Health Maintenance Due Date Last Done Comments Cervical Cancer Screening Pa p Smear (Age 30 to 64) Every 3 Years 1978 Annual Physical 1981 Pneumococcal Vaccine: Pediatrics (0 to 5 Years) and At-Risk Patients (6 to 64 Years) (1 of 2 - PCV) 01/09/1984 Hepatitis C 01/09/1996 Hepatitis B Vaccines (1 of 3 - 19+ 3-dose series) 1997 Cervical Cancer Screening Pa p with HPV Testing (Age 30 to 64) Every 5 Years 01/09/2008 Cervical Cancer Screening wi th HPV 01/09/2008 Mammogram Screening 2018 DTaP, Tdap and Td Vaccines ( 2 - Td or Tdap) 07/07/2022 07/07/2012 COVID-19 Vaccine (2023-2 5 season) 2023 10/01/2020, 09/10/2020 Influenza Adult (#1) 2023 Colorectal Cancer Screening Colonoscopy (10 Years) 02/23/2031 02/23/2021, 02/23/2021 Meningococcal B Vaccine Aged Out No l onger eligible based on patient's age to complete this topic Meningococcal Vaccine Aged Out No jo ann kristen eligible based on patient's age to complete this topic RSV Immunizations Under 20 Months Aged Out No longer eligible b ased on patient's age to complete this topic Procedures Procedure Name Priority Date/Time Associated Diagnosis Comments COLONOSCOPY Routine 02/23/2021 7:56 AM PASTING INSPECTOR from Last 3 Months or Most Recently Relevant to Health Maintenance Insurance MEDICARE MEDICAID
--- OUTSIDE RECORDS SUMMARY | 2024-03-07 07:54 | XMS_ITS | Clinical Summary ---
Author Organization [facility] Address [address] [place] [address] Phone Care Team Providers Care Patient Insurance Clerk Name Role Phone Pepe Delcid DO Primary Care Provider [phone] Allergies Active Allergy Reactions Criticality Noted Date Comments Penicillins Hives Medium 08/08/2018 All cillins Medications modafinil (PROVIGIL) 200 MG Tablet Take 200 mg by mouth every morning. Active glipiZIDE (GLUCOTROL) 10 MG Tablet Take 10 mg by mouth 2 times daily (before meals). Active gabapentin (NEURONTIN) 300 MG CapsuleIndicati ons:Diabetic Neuropathy Take 600 mg by mouth nightly. Indications: Diabetes with Nerve Disease Active HYDROcodone-kylie taminophen (NORCO) 5-325 MG Tablet Take 1 Tab by mouth every 6 hours as needed for Moderate or more severe pain. 15 Tab 9 Active nicotine (NICODERM CQ) 21 MG/24HR PATCH 24 HR 1 Patch by Transdermal route daily. 30 Patch 9 Active Active Problems Problem Noted Date Diagnosed Date Neuropathy 08/14/2018 Narcolepsy 08/14/2018 Type 2 diabetes mellitus wit h diabetic polyneuropathy, without long-term current use of insulin 08/13/2018 Sepsis 08/13/2018 Cellulitis of right foot 08/13/2018 Tobacco dependence syndrome 08/13/2018 Restless leg syndrome 08/13/2018 Foreign body in foot, right, infected 08/10/2018 Somatic symptom disorder, pe rsistent, severe, with predominant pain 03/16/2018 Chronic pain syndrome 03/16/2018 Family History Medical History Relation Name Comments Heart Attack Father Hypertension Mother Kidney Disease Mother Relation Name Status Comments Father Alive Mother Alive Social History Tobacco Use Types Packs/Day Years Used Date Smoking Tobacco: Every Day Cigarettes 1 27.6 Started: 08/08/1996 Smokeless Tobacco: Never Tobacco Cessation:Ready to Q uit: No Alcohol Use Standard Drinks/Week Comments Not Currently 0 (1 standard drink = 0.6 oz pur e alcohol) Sexually Active Control Partners Comments Yes Comments No Sex and Gender Information Value Date Recorded Sex Assigned at Not on file Legal Sex Female 10:29 PM CDT Gender Identity Not on file Sexual Orientation Not on file Last Filed Vital Signs Vital Sign Reading Time Taken Comments Blood Pressure 136/87 01/01/2020 4:32 AM AIR QUALITY ENGINEER Pulse 76 01/01/2020 4:32 AM AIR QUALITY ENGINEER Temperature 36.2 ??C (97.2 ??F) 01/01/2020 1:31 AM CS T Respiratory Rate 18 01/01/2020 4:32 AM AIR QUALITY ENGINEER Oxygen Saturation 100% 01/01/2020 4:32 AM AIR QUALITY ENGINEER Inhaled Oxygen Concentration - - Weight 108 kg (238 lb) 01/01/2020 1:40 AM AIR QUALITY ENGINEER Height 177.8 cm (5' 10 ) 01/01/2020 1:40 AM AIR QUALITY ENGINEER Body Mass Index 34.15 01/01/2020 1:40 AM AIR QUALITY ENGINEER Plan of Treatment Health Maintenance Due Date Last Done Comments Diabetes: Eye Exam 1978 Hepatitis C Virus (HCV) Screening 1978 Hepatitis B Immunization (1 of 3 - 19+ 3-dose series) 1997 Pneumococcal Immunization Combined (1 of 2 - PCV) 1997 Pap Smear 1999 Cervical Cancer Screening (CCS) 01/09/2008 HPV/Cotest 01/09/2008 Discussion re Starting/Frequency of Mammograms 2018 Diabetes: Foot Exam 08/14/2019 08/13/2018 Diabetes: Hemoglobin A1c 06/30/2020 020, 08/15/2018 Diabetes: Nephropathy Screening 12/31/2020 01/01/2020, 08/15/2018, 08/13/2018 Colonoscopy 2023 Colorectal Cancer Screening 2023 Influenza Immunization (#1) 2023 SARS-COV-2 Immunization ( season) 2023 10/01/2020, 09/10/2020 Respiratory Syncytial Virus (RSV) Immunization (Adult) (1 - 1-dose 75+ series) 2053 DTaP/Tdap/Td Immunization Discontinued 07/07/2012 TdaP Immunization Completed 07/07/2012 Meningococcal Immunization (ACWY) Aged Out No longer eligible based on patient's age to complete this topic Rotavirus Immunization Aged Out No lo nger eligible based on patient's age to complete this topic Procedures Procedure Name Priority Date/Time Associated Diagnosis Comments CMP (COMPREHENSIVE METABOLIC PANEL) STAT 01/01/2020 1:55 AM AIR QUALITY ENGINEER HEMOGLOBIN A1C W/ ESTIMATED GLUCOSE STAT 01/01/2020 1:55 AM AIR QUALITY ENGINEER from Last 3 Months or Most Recently Relevant to Health Maintenance Results * (ABNORMAL) Hemoglobin A1C w/ Estimated Glucose (01/01/2020 1:55 AM AIR QUALITY ENGINEER) HGB-A1C 15.0(H) 4.0 - 6.0 % 01/01/2020 2:29 AM AIR QUALITY ENGINEER [facility] Est Average Glucose >355.1 mg/dL 01/01/2020 2:29 AM AIR QUALITY ENGINEER [facility] Comment:If Hgb A1C is greate r than 14.0, then Estimated Average Glucose is greater than 355.1 Blood Venipuncture / Unknown 01/01/2020 1:55 AM AIR QUALITY ENGINEER 01/01/2020 2:00 AM AIR QUALITY ENGINEER Narrative [facility] - 01/01/2020 2:29 AM AIR QUALITY ENGINEER HEMOGLOBIN A1C: DIABETIC PATIENTS: WELL-CONTROLLED: ?? 6.2 - 7.0 INTERMEDIATE WELL-CONTROLLED: ??7.0 - 9.0 POORLY-CONTROLLED: ??>9.0 us Jerrod Apodaca MD CHEMISTRY ORDERABLES Final Result [facility] [address] [place] [address] * (ABNORMAL) CMP (Comprehensive Metabolic Panel) (01/01/2020 1:55 AM AIR QUALITY ENGINEER) SODIUM 126(L) 136 - 144 mmol/L 01/01/2020 2:40 AM [facility] POTASSIUM 3.9 3.5 - 5.1 mmol/L 01/01/2020 2:40 AM [facility] CHLORIDE 89(L) 100 - 110 mmol/L 01/01/2020 2:40 AM [facility] CO2, VENOUS 22 22 - 32 mmol/L 01/01/2020 2:40 AM [facility] ANION GAP 18.9 8.0 - 20.0 mmol/L 01/01/2020 2:40 AM [facility] GLUCOSE 686(HH) 70 - 99 mg/dL 01/01/2020 2:40 AM [facility] BUN 8 6 - 20 mg/dL 01/01/2020 2:40 AM [facility] CREATININE, BLOOD 0.72 0.60 - 1.10 mg/dL 01/01/2020 2:40 AM [facility] BUN/CREATININE RATIO 11(L) 12 - 20 ratio 01/01/2020 2:40 AM [facility] TOTAL PROTEIN 7.0 6.0 - 8.3 g/dL 01/01/2020 2:40 AM [facility] ALBUMIN 4.2 3.5 - 5.2 g/dL 01/01/2020 2:40 AM [facility] Comment: The colormetric methods used for the determination of Albumin may lead to falsely elevated test results in patients suffering from renal failure or insufficiency due to interference with other proteins. A/G RATIO 1.5 1.0 - 2.0 01/01/2020 2:40 AM [facility] CALCIUM 9.1 8.9 - 10.3 mg/dL 01/01/2020 2:40 AM [facility] T BILI 0.3 <=1.2 mg/dL 01/01/2020 2:40 AM [facility] SGOT (AST) 23 <=32 U/L 01/01/2020 2:40 AM [facility] SGPT (ALT) 33 <=33 U/L 01/01/2020 2:40 AM AIR QUALITY ENGINEER [facility] ALKALINE PHOSPHATASE 101 35 - 105 U/L 01/01/2020 2:40 AM AIR QUALITY ENGINEER [facility] GFR, EST. NONAFRICAN >60 >=60 01/01/2020 2:40 AM AIR QUALITY ENGINEER [facility] GFR, EST. >60 >=60 020 2:40 AM AIR QUALITY ENGINEER [facility] Comment: Creatinine Clearance is the preferred criteria for selecting drug dose adjustments in renally impaired patients. ??The GFR is provided as additional pertinent clinical information. GFR is reported in mL/min/1.73 sq m. 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 PRE-ARREST: Use entire range of life support measures to stabilize the patient. Care Teams Patient Insurance Clerk Relationship Specialty Start Date End Date Pepe Delcid DO [address] [place] [address] PCP - General Family Medicine 03/07/18
--- OUTSIDE RECORDS SUMMARY | 2024-03-07 07:54 | XMS_ITS | Encounter Summary ---
Author Organization [facility] Address [address] [place] [address] Care Team Providers Care River Rat Name Role Phone Pepe Delcid DO Primary Care Provider [phone] Yfn Martínez DPM Unavailable [phone] Moris Lima MD Primary Care Provider [phone] Reason for Visit * Reason Onset Date Comments Scheduling Appointments 07/09/2020 confirme d left shoulder inj - told her not to come until 915 - MRI at 10 Encounter Details Date Type Department Care Team (Late st Contact Info) Description 07/09/2020 Telephone [facility] [address] [place] [id number] Jennifer Mueller RT Scheduling Appointments (confirmed left shoulder inj - told her not to come until 915 - MRI at 10) Social History Tobacco Use Types Packs/Day Years Used Date Smoking Tobacco: Heavy Smoker Cigarettes Smokeless Tobacco: Never Comments:Smoking History Pac ks/day: 10 Cigarettes Alcohol Use Standard Drinks/Week Comments No 0 (1 standard drink = 0.6 oz pur e alcohol) Comments No Sex and Gender Information Value Date Recorded Sex Assigned at Not on file Legal Sex Female 3:28 AM AIRCRAFT LINE ASSEMBLER Gender Identity Not on file Sexual Orientation Not on file documented as of this encounter Plan of Treatment Not on file documented as of this encounter Visit Diagnoses Not on filedocumented in this encounter Care Teams River Rat Relationship Specialty Start Date End Date Pepe Delcid DO PCP - General 10/29/18 07/30/23 Moris Lima MD PCP - General Family Practice 07/31/23 Yfn Martínez DPM Consulting Physician Podiatry 08/16/20 documented as of this encounter
[2024-03-07 18:47] LABS: Basophils Absolute Auto 0.1 K/mm3 (0.0-0.1); Basophils Percent Auto 0.7 % (0.2-1.2); Eosinophils Absolute Auto 0.2 K/mm3 (0-0.3); Eosinophils Percent Auto 2.5 % (0-4.4); Hematocrit 48.9 % (37.0-47.0); Immature Granulocyte Absolute 0.02 K/mm3 (0.00-0.031); Immature Granulocyte Percent A 0.2 % (0-0.5); Lymphocytes Absolute Auto 2.01 K/mm3 (0.9-3.2); Lymphocytes Percent Auto 24.9 % (18.3-44.2); Mean Corpuscular HGB Conc 32.7 g/dl (32-36); Mean Corpuscular Hemoglobin 30.4 pg (26-34); Mean Corpuscular Volume 92.8 fl (80-100); Monocytes Absolute Auto 0.5 K/mm3 (0.1-0.6); Monocytes Percent Auto 6.5 % (2.6-8.5); Neutrophils Absolute Auto 5.3 K/mm3 (1.3-6.7); Neutrophils Percent Auto 65.2 % (45.5-73.1); Platelet Count Result 216 k/mm3 (150-375); Red Blood Count 5.27 M/mm3 (4.2-5.4); Red Cell Distribution Width 13.8 % (11.5-14.5); White Blood Count 8.1 K/mm3 (4.5-10.0)
[2024-03-07 19:04] LABS: Alanine Aminotransferase 32 U/L (6-35); Albumin Level 3.9 g/dL (3.5-5.1); Alkaline Phosphatase 93 U/L (38-126); Anion Gap 10 mmol/L (4-12); Aspartate Amino Transferase 47 U/L (14-36); Bilirubin,Total 0.6 mg/dL (0.2-1.3); Blood Urea Nitrogen 14 mg/dL (7-17); Carbon Dioxide 26 mmol/L (22-30); Chloride 102 mmol/L (98-107); Cholesterol 116 mg/dL (0-200); Estimated Glomerular Filt Rate > 60; Glucose 255 mg/dL (65-110); HDL Direct 35 mg/dL; Potassium 3.9 mmol/L (3.4-5.0); Sodium 138 mmol/L (137-145); Triglycerides 71 mg/dL (<150)
[2024-03-07 19:15] LABS: LDL Cholesterol Direct 72 mg/dL
[2024-03-07 20:19] LABS: Creatinine Urine 120.6 mg/dL; MALB Creatinine Ratio 7.5 mg/g (0-30)
[2024-03-07 20:55] LABS: Vitamin D 25 Hydroxy 23.1 ng/mL
[2024-03-07 21:14] LABS: Hemoglobin A1C 11.9 % (<5.7)
== END 2024-03-07 07:49 | disposition home or self-care (01) ==
LOC: ANHBWCLAB 07:50
PROVIDERS: PCP Family Medicine; Visit Provider Family Medicine
DX: E11.9 Type 2 diabetes mellitus without complications (principal); E55.9 Vitamin D deficiency, unspecified; Z79.899 Other long term (current) drug therapy
CPT/HCPCS: 36415; 80053; 80061; 82043; 82306; 83036; 85025

== ENCOUNTER 2024-05-28 08:41 | Emergency (ER) | payer MEDICARE, MEDICAID, SELFPAY ==
[2024-05-28 08:53] VITALS: BP 150/89; PULSE 97; RESP 18; TEMP 36.2; O2SAT 100
--- OUTSIDE RECORDS SUMMARY | 2024-05-28 09:05 | XMS_ITS | Clinical Summary ---
Author Organization [facility] Address [address] [place] [address] Care Team Providers Care Campus Director Name Role Phone Yfn Martínez Romain DPM Unavailable [phone] Moris Lima MD Primary Care Provider [phone] Allergies Active Allergy Reactions Criticality Noted Date Comments Lactose Diarrhea Low Penicillins Hives,Rash Medium 08/08/2018 Reaction: Hives, Skin Rash, , , All cillins Medications HYDROcodone-kylie taminophen (VICODIN) [...] AM CDT): Continue Provigil Diabetic peripheral neuropathy 08/14/2018 Assessment & Plan (08/11/2020 3:32 AM [...] on file Legal Sex Female 3:28 AM SENIOR GOVERNMENT PROGRAM ANALYST Gender Identity Not on file Sexual Orientation Not on file Obstetrics History Last Filed Vital Signs Vital Sign Reading Time Taken Comments Blood Pressure 143/84 07/31/2023 1:44 PM CDT Pulse 86 07/31/2023 1:44 PM CDT Temperature 36.9 C (98.4 F) 07/31/2023 1:44 PM CDT Respiratory Rate 18 07/31/2023 1:44 PM CDT [...] 1978 Foot Exam 1978 Lipid Panel 1978 Hepatitis B Screening 01/09/1996 Regular Well Visit/Exam 18-64 01/09/1996 Pneumococcal vaccine <65 (1 of 2 - PCV) 1997 Hemoglobin A1C 10/15/2017 04/14/2017 Depression Screening 08/10/2021 08/10/2020 eGFR 08/16/2021 08/16/2020, 08/06, 08/14/2020, Additional history exists DTaP/Tdap/Td Vaccine (2 - Td or Tdap) 07/07/2022 07/07/2012 Influenza Vaccine (Season Ended) 2024 HPV Vaccines Aged Out No longer eligi ble based on patient's age to complete this topic Procedures Procedure Name Priority Date/Time Associated Diagnosis Comments EGFR Routine 08/16/2020 5:59 AM CDT HEMOGLOBIN A1C Routine 04/14/2017 12:19 PM SENIOR GOVERNMENT PROGRAM ANALYST from Last 3 Months or Most Recently Relevant to Health Maintenance Results * eGFR (08/16/2020 5:59 AM CDT) eGFR 122 mL/min/1.7 3 m2 [facility] ([place]) Comment: Interpretive Data Reference Interval Normal >/= 90 mL/min/1.73m2 Mildly decreased* 60 - 89 mL/min/1.73m2 Mildly to moderately decreased 45 - 59 mL/min/1.73m2 Moderately to severely decreased 30 - 44 mL/min/1.73m2 Severely decreased 15 - 29 mL/min/1.73m2 Kidney Failure < 15 mL/min/1.73m2 *Relative to young adult level Estimated glomerular [...] ORDERABLES Final Resu lt Performing Organization Address City/[facility]/ZIP Co de Phone Number [facility] ([place]) [address] [facility] [place] [address] * (ABNORMAL) Hemoglobin A1c (04/14/2017 12:19 PM SENIOR GOVERNMENT PROGRAM ANALYST) Hgb A1C 11.5(H) 4.0 - 5.6 % [facility] ([place]) Estimated Average Glucose 283 mg/dL [facility] ([place]) Comment: The ADA recommends reporting an estimated Average Glucose (eAG) with all Hemoglobin A1c results using the equation derived from a study of 507 normal and diabetic adults. Minority populations were underrepresented and children were not included. (Diabetes Care 31:0720-2305, 2008). The eAG is not equivalent to a fasting glucose. Blood specimen (specimen) 04/14/2017 12:19 PM SENIOR GOVERNMENT PROGRAM ANALYST 04/14/2017 12:26 PM SENIOR GOVERNMENT PROGRAM ANALYST Narrative [facility] ([place]) - 04/14/2017 12:58 PM SENIOR GOVERNMENT PROGRAM ANALYST us Pepe Monaco MD LAB BLOOD ORDERABLES Final Result Performing Organization Address City/[facility] Co de Phone Number [facility] ([place]) [address] [facility] [place] [address] from Last 3 Months or Most Recently Relevant to Health Maintenance Insurance [place] MEDICARE MEDICARE [place] MEDICARE [place] AETNA [facility] Advance Directives For more information, please contact: [phone] * Full Code (Latest Code Status on File) Date Activated Date Inactivated Comments 08/10/2020 10:48 PM 08/16/2020 7:24 PM Care Teams Campus Director Relationship Specialty Start Date End Date Moris Lima MD PCP - General Family Practice 07/31/23 Yfn Martínez DPM Consulting Physician Podiatry 08/16/20
--- OUTSIDE RECORDS SUMMARY | 2024-05-28 09:05 | XMS_ITS | Clinical Summary ---
Author Organization [facility] Address [address] [place] [address] Care Team Providers Care Front Window Cashier Name Role Phone Unavailable Primary Care Provider [...] on file Legal Sex Female 4:17 PM SOIL FIELD TECHNICIAN Gender Identity Not on file Sexual Orientation Not on file Last Filed Vital Signs Vital Sign Reading Time Taken Comments Blood Pressure 127/72 02/23/2021 9:30 AM SOIL FIELD TECHNICIAN Pulse 92 02/23/2021 9:30 AM SOIL FIELD TECHNICIAN Temperature 35.9 C (96.6 F) 02/23/2021 9:20 AM SOIL FIELD TECHNICIAN Respiratory Rate 18 02/23/2021 9:30 AM SOIL FIELD TECHNICIAN Oxygen Saturation 98% 02/23/2021 9:30 AM SOIL FIELD TECHNICIAN Inhaled Oxygen Concentration - - Weight 107 kg (236 lb) 02/08/2021 8:16 AM SOIL FIELD TECHNICIAN Height 177.8 cm (5' 10 ) 02/08/2021 8:16 AM SOIL FIELD TECHNICIAN Body Mass Index 33.86 02/08/2021 8:16 AM SOIL FIELD TECHNICIAN Plan of Treatment Health Maintenance Due Date Last Done Comments Cervical Cancer Screening Pa p Smear (Age 30 to 64) Every 3 Years 1978 Annual Physical 1981 Hepatitis C 01/09/1996 Hepatitis B Vaccines (1 of 3 - 19+ 3-dose series) 1997 Pneumococcal Vaccine: Pediatrics (0 to 5 Years) and At-Risk Patients (6 to 49 Years) (1 of 2 - PCV) 1997 Cervical Cancer Screening Pa p with HPV Testing (Age 30 to 64) Every 5 Years 01/09/2008 Cervical Cancer Screening wi th HPV 01/09/2008 Mammogram Screening 2018 DTaP, Tdap and Td Vaccines ( 2 - Td or Tdap) 07/07/2022 07/07/2012 COVID-19 Vaccine (3 - 2023-2 5 season) 2023 10/01/2020, 09/10/2020 Colorectal Cancer Screening Colonoscopy (10 Years) 02/23/2031 [...] Diagnosis Comments COLONOSCOPY Routine 02/23/2021 7:56 AM SOIL FIELD TECHNICIAN from Last 3 Months or Most Recently Relevant to Health Maintenance Insurance MEDICARE MEDICAID
--- OUTSIDE RECORDS SUMMARY | 2024-05-28 09:05 | XMS_ITS | Referral Summary ---
Author Organization [facility] Address [address] [place] [address] Care Team Providers Care Therapist Asst Name Role Phone Yfn Martínez Romain DPM Unavailable [phone] Moris Lima MD Primary Care Provider [phone] Allergies Active Allergy Reactions Criticality Noted Date [...] on file Legal Sex Female 3:28 AM CARE ADVOCATE Gender Identity Not on file Sexual Orientation [...] CDT HEMOGLOBIN A1C Routine 04/14/2017 12:19 PM CARE ADVOCATE from Last 3 Months or Most Recently [...] ORDERABLES Final Resu lt Performing Organization Address City/[facility]/ZIP Co de Phone Number [facility] ([place]) 1 [facility] [email or web address] [address] * (ABNORMAL) Hemoglobin A1c (04/14/2017 12:19 PM CARE ADVOCATE) Hgb A1C 11.5(H) 4.0 - 5.6 % [facility] ([place] Estimated Average Glucose 283 mg/dL [facility] ([place]) Comment: The ADA recommends reporting an estimated Average Glucose (eAG) with all Hemoglobin A1c results using the equation derived from a study of 507 normal and diabetic adults. Minority populations were underrepresented and children were not included. (Diabetes Care 31:7962-4986, 2008). The eAG is not equivalent to a fasting glucose. Blood specimen (specimen) 04/14/2017 12:19 PM CARE ADVOCATE 04/14/2017 12:26 PM CARE ADVOCATE Narrative [facility] ([place]) - 04/14/2017 12:58 PM CARE ADVOCATE us Pepe Monaco MD LAB BLOOD ORDERABLES Final Result Performing Organization Address City/[facility]/ZIP Co de Phone Number [facility] ([place]) 1 [facility] [email or web address] [address] from Last 3 Months or Most Recently Relevant to Health Maintenance Insurance IDPA MEDICARE [facility] Address: [address] [address] [place] [address] MEDICARE [facility] MEDICARE [place] AETNA [facility] Advance Directives For more information, please contact: [phone] * Full Code (Latest Code Status on File) Date Activated Date Inactivated Comments 08/10/2020 10:48 PM 08/16/2020 7:24 PM Care Teams Therapist Asst Relationship Specialty Start Date End Date Moris Lima MD PCP - General Family Practice 07/31/23 Yfn Martínez DPM Consulting Physician Podiatry 08/16/20
--- OUTSIDE RECORDS SUMMARY | 2024-05-28 09:05 | XMS_ITS | Encounter Summary ---
Author Organization [facility] Address [address] [place] [address] Care Team Providers Care Movement Assembly Final Inspector Name Role Phone Pepe Delcid DO Primary Care Provider [phone] Yfn Martínez DPM Unavailable [phone] Moris Lima MD Primary Care Provider [phone] Reason for Visit * Reason Onset Date Comments Scheduling Appointments 07/09/2020 confirme d left shoulder inj - told her not to come until 915 - MRI at 10 Encounter Details Date Type Department Care Team (Late st Contact Info) Description 07/09/2020 Telephone [facility] [address] [place] [phone] Jennifer Mueller RT Scheduling Appointments (confirmed left [...] on file Legal Sex Female 3:28 AM STEAM DRIER OPERATOR Gender Identity Not on file Sexual Orientation Not on file documented as of this encounter Plan of Treatment Not on file documented as of this encounter Visit Diagnoses Not on filedocumented in this encounter Care Teams Movement Assembly Final Inspector Relationship Specialty Start Date End Date Pepe Delcid DO PCP - General 10/29/18 07/30/23 Moris Lima MD PCP - General Family Practice 07/31/23 Yfn Martínez DPM Consulting Physician Podiatry 08/16/20 documented as of this encounter
--- OUTSIDE RECORDS SUMMARY | 2024-05-28 09:05 | XMS_ITS | Clinical Summary ---
Author Organization [facility] Address [address] [place] [address] Phone Care Team Providers Care Health Spa Manager Name Role Phone Pepe Delcid DO Primary Care Provider [phone] Allergies Active Allergy Reactions Criticality Noted Date [...] Date Smoking Tobacco: Every Day Cigarettes 1 27.8 Started: 08/08/1996 Smokeless Tobacco: Never Tobacco Cessation:Ready [...] Comments Blood Pressure 136/87 01/01/2020 4:32 AM BABY STROLLER RENTAL CLERK Pulse 76 01/01/2020 4:32 AM BABY STROLLER RENTAL CLERK Temperature 36.2 C (97.2 F) 01/01/2020 1:31 AM BABY STROLLER RENTAL CLERK Respiratory Rate 18 01/01/2020 4:32 AM BABY STROLLER RENTAL CLERK Oxygen Saturation 100% 01/01/2020 4:32 AM BABY STROLLER RENTAL CLERK Inhaled Oxygen Concentration - - Weight 108 kg (238 lb) 01/01/2020 1:40 AM BABY STROLLER RENTAL CLERK Height 177.8 cm (5' 10 ) 01/01/2020 1:40 AM BABY STROLLER RENTAL CLERK Body Mass Index 34.15 01/01/2020 1:40 AM BABY STROLLER RENTAL CLERK Plan of Treatment Health Maintenance Due Date Last Done Comments Diabetes: Eye Exam 1978 Hepatitis C Virus (HCV) Screening 1978 Hepatitis B Immunization (1 of 3 - 19+ 3-dose series) 1997 Pneumococcal Immunization Combined (1 of 2 - PCV) 1997 Diabetes: Foot Exam 08/14/2019 08/13/2018 Diabetes: Hemoglobin A1c 06/30/2020 020, 08/15/2018 Diabetes: Nephropathy Screening 12/31/2020 01/01/2020, 08/15/2018, 08/13/2018 Colonoscopy 2023 Colorectal Cancer Screening 2023 Influenza Immunization (#1) 2023 SARS-COV-2 Immunization (3 - 2023- season) 2023 10/01/2020, 09/10/2020 Respiratory Syncytial Virus [...] (COMPREHENSIVE METABOLIC PANEL) STAT 01/01/2020 1:55 AM BABY STROLLER RENTAL CLERK HEMOGLOBIN A1C W/ ESTIMATED GLUCOSE STAT 01/01/2020 1:55 AM BABY STROLLER RENTAL CLERK from Last 3 Months or Most Recently Relevant to Health Maintenance Results * (ABNORMAL) Hemoglobin A1C w/ Estimated Glucose (01/01/2020 1:55 AM BABY STROLLER RENTAL CLERK) HGB-A1C 15.0(H) 4.0 - 6.0 % 01/01/2020 2:29 AM BABY STROLLER RENTAL CLERK [facility] Est Average Glucose >355.1 mg/dL 01/01/2020 2:29 AM BABY STROLLER RENTAL CLERK [facility] Comment:If Hgb A1C is greate r than 14.0, then Estimated Average Glucose is greater than 355.1 Blood Venipuncture / Unknown 01/01/2020 1:55 AM BABY STROLLER RENTAL CLERK 01/01/2020 2:00 AM BABY STROLLER RENTAL CLERK Narrative [facility] - 01/01/2020 2:29 AM BABY STROLLER RENTAL CLERK HEMOGLOBIN A1C: DIABETIC PATIENTS: WELL-CONTROLLED: 6.2 - 7.0 INTERMEDIATE WELL-CONTROLLED: 7.0 - 9.0 POORLY-CONTROLLED: >9.0 us Jerrod Apodaca MD CHEMISTRY ORDERABLES Final Result [facility] [address] [place] [address] * (ABNORMAL) CMP (Comprehensive Metabolic Panel) (01/01/2020 1:55 AM BABY STROLLER RENTAL CLERK) SODIUM 126(L) 136 - 144 mmol/L 01/01/2020 2:40 AM BABY STROLLER RENTAL CLERK [facility] POTASSIUM 3.9 3.5 - 5.1 mmol/L 01/01/2020 2:40 AM [facility] CHLORIDE 89(L) 100 - 110 mmol/L 01/01/2020 2:40 AM [facility] CO2, VENOUS 22 22 - 32 mmol/L 01/01/2020 2:40 AM [facility] ANION GAP 18.9 8.0 - 20.0 mmol/L 01/01/2020 2:40 AM [facility] GLUCOSE 686(HH) 70 - 99 mg/dL 01/01/2020 2:40 AM [facility] BUN 8 6 - 20 mg/dL 01/01/2020 2:40 AM [facility] CREATININE, BLOOD 0.72 0.60 - 1.10 mg/dL 01/01/2020 2:40 AM [facility] BUN/CREATININE RATIO 11(L) 12 - 20 ratio 01/01/2020 2:40 AM [facility] TOTAL PROTEIN 7.0 6.0 - 8.3 g/dL 01/01/2020 2:40 AM [facility] ALBUMIN 4.2 3.5 - 5.2 g/dL 01/01/2020 2:40 AM [facility] Comment: The colormetric methods used for the determination of Albumin may lead to falsely elevated test results in patients suffering from renal failure or insufficiency due to interference with other proteins. A/G RATIO 1.5 1.0 - 2.0 01/01/2020 2:40 AM [facility] CALCIUM 9.1 8.9 - 10.3 mg/dL 01/01/2020 2:40 AM [facility] T BILI 0.3 <=1.2 mg/dL 01/01/2020 2:40 AM [facility] SGOT (AST) 23 <=32 U/L 01/01/2020 2:40 AM [facility] SGPT (ALT) 33 <=33 U/L 01/01/2020 2:40 AM [facility] ALKALINE PHOSPHATASE 101 35 - 105 U/L 01/01/2020 2:40 AM BABY STROLLER RENTAL CLERK [facility] GFR, EST. NONAFRICAN >60 >=60 01/01/2020 2:40 AM BABY STROLLER RENTAL CLERK [facility] GFR, EST. >60 >=60 020 2:40 AM BABY STROLLER RENTAL CLERK [facility] Comment: Creatinine Clearance is the preferred criteria for selecting drug dose adjustments in renally impaired patients. The GFR is provided as additional pertinent clinical information. GFR is reported in mL/min/1.73 sq m. Blood Venipuncture / Unknown 01/01/2020 1:55 AM BABY STROLLER RENTAL CLERK 01/01/2020 2:00 AM BABY STROLLER RENTAL CLERK Jerrod Apodaca MD CHEMISTRY ORDERABLES Final Result [facility] [address] [place] [address] from Last 3 Months or Most Recently [...] measures to stabilize the patient. Care Teams Health Spa Manager Relationship Specialty Start Date End Date Pepe Delcid DO [address] [place] [address] PCP - General Family Medicine 03/07/18
--- NOTE | 2024-05-28 09:10 | ED_ITS ---
HPI - Ear Problem General Chief complaint: Ear Stated complaint: Left Ear /Neck Pain/Sore Throat History of Present Illness HPI Narrative: Patient is a 44-year-old female, past medical history significant for hypertension, diabetes and obesity, presents to [facility] with 2 day history of sore throat symptoms, progressively worsening, waking her last night with sore throat and left otalgia. She denies otorrhea or discomfort when palpating over the left auricle. She believes she ran a fever last night as well. She is taking [id number] Tylenol without much relief, prompting her visit. She does not have cough. She denies focal sinus pain or nasal discharge. She has no known sick contacts. Her blood sugars are well controlled baseline as she does have the ability to sliding scale if needed. Related Data Allergies Allergy/AdvReac Type Severity Reaction Status Date / Time Penicillins Allergy Intermediate HIVES Verified 05/28/24 08:53 metformin Allergy Unknown Diarrhea Verified 05/28/24 08:53 pollen extracts Allergy Unknown Unknown Verified 05/28/24 08:53 lactose Allergy Diarrhea Verified 05/28/24 08:53 Review of Systems ENT: Comments: Refer to [facility] Past Medical History Medical History Ear pain Smoker Axillary mass Diabetes Narcolepsy cataplexy syndrome Chronic back pain Restless leg syndrome Surgical History Surgical History History of tonsillectomy History of appendectomy History of cholecystectomy H/O tubal ligation Family History Family History Father Heart disease Diabetes mellitus Mother Hypertension Unknown Hypertension Diabetes mellitus Mother Hypertension Sibling Diabetes mellitus Father Acute myocardial infarction Other Family history of attention deficit hyperactivity disorder (ADHD) Family history of autism Social History Social History (Updated 03/06/24 @ 08:03 by Shaylee Russo MA) Social History: Currently smoking half pack per day. Smoking packs per day: 1 Smoking cigarettes per day: 20.0 Years smoked: 21 Smoking pack-years: 21.00 Smoking status: Current every day smoker Second hand tobacco smoke exposure: Yes Alcohol intake: never Substance use: never Substance use type: marijuana Do You Feel Safe in your Home?: Yes Lack of Transportation: No Lack of Food: Never True Current Housing: I Have Housing Concerned About Future Housing: YES Difficulty Paying Gas/Electric Bills: YES Difficulty Paying for Meds: No Currently Unemployed: No Education: High School Diploma/GED Difficulty w/ Childcare or Family Care: No Living arrangements: with family Occupation/Education: other Additional occupation/education comments: disabled Gender identity (if verbalized by the patient): Female Exam Const: General: healthy appearing Nutritional Appearance: obese Orientation/consciousness: patient oriented x3 HENMT: Head: normal to inspection Ears: TM abnormal ( left TM is erythematous with a purulent effusion) Face/Nose/Sinus: Normal external nose present and Normal nares present Face and sinus: normal facial exam Mouth: Yes Normal oral and palatal mucosa present and Yes lip normal Throat: uvula midline Other: diffuse pharyngeal erythema. Tonsils are absent, no exudate, no trismus Eyes: Conjunctivae: conjunctivae normal Pupils: Equal, round and reactive pupils present EOM: EOMs intact bilaterally Neck: Neck: normal visual inspection, no lymphadenopathy and no meningeal signs Resp: Effort & Inspection: normal respiratory effort Auscultation: clear to auscultation bilaterally Cardio: Rate: regular rate Rhythm: regular rhythm Skin: General skin exam: normal color Rashes: no rashes Wounds: no wounds Neuro: General: patient oriented x3, moves all extremities, no meningeal signs, no focal motor deficits and CN's II-XI intact bilaterally Cranial nerves: Yes Nystagmus not present Speech: normal speech Gait exam (Neuro): Normal gait present Extrem: General: normal to inspection Course Course Emergency Course: plan to treat for left otitis media with empiric coverage for pharyngitis. Patient is requesting an oral steroid as she states that she typically does not resolve infections of this nature without oral steroids. She does have the ability to do treat an elevated blood glucose with a sliding scale insulin dose as she is advised steroids will increase her blood glucose levels, decreasing environment for healing. She will push fluids and rest at home and will follow- up with her primary doctor in 3 days if symptoms are not resolving. Level of Care: [facility] Visit ([id number]) Vital Signs Vital signs: Vital Signs Temperature 36.2 C L 05/28/24 08:53 Pulse Rate 97 05/28/24 08:53 Respiratory Rate 18 05/28/24 08:53 Blood Pressure 150/89 H 05/28/24 08:53 Pulse Oximetry 100 05/28/24 08:53 Oxygen Delivery Room Air 05/28/24 08:53 Temperature 36.2 C L 05/28/24 08:53 Pulse Rate 97 05/28/24 08:53 Respiratory Rate 18 05/28/24 08:53 Blood Pressure 150/89 H 05/28/24 08:53 Pulse Oximetry 100 05/28/24 08:53 Oxygen Delivery Room Air 05/28/24 08:53 Medical Decision Making MDM Narrative Medical decision making narrative: Will treat for left otitis media and pharyngitis with cefdinir. Patient states that she has tolerated cephalosporins well in the past , despite allergic history to penicillin. Close follow-up with her PCP in 3 days if symptoms not resolving. Differential Diagnosis Differential Diagnosis: Otitis media, strep pharyngitis, URI Vital Signs Vital Signs: Vital Signs Temperature 36.2 C L 05/28/24 08:53 Pulse Rate 97 05/28/24 08:53 Respiratory Rate 18 05/28/24 08:53 Blood Pressure 150/89 H 05/28/24 08:53 Pulse Oximetry 100 05/28/24 08:53 Oxygen Delivery Room Air 05/28/24 08:53 Temperature 36.2 C L 05/28/24 08:53 Pulse Rate 97 05/28/24 08:53 Respiratory Rate 18 05/28/24 08:53 Blood Pressure 150/89 H 05/28/24 08:53 Pulse Oximetry 100 05/28/24 08:53 Oxygen Delivery Room Air 05/28/24 08:53 Discharge Plan Discharge Clinical Impression: Acute suppur left otitis media w/o spontan rupture tympanic membrane, Pharyngitis Patient Disposition: Home Condition: Stable Instructions: Antibiotic Form, Pharyngitis (ED), Ear Infection (GEN) Additional Instructions: PUSH FLUIDS, REST, COMPLETE ANTIBIOTICS PRESCRIBED. COMPLETE STEROIDS WELL. TAKE WITH FOOD TO REDUCE GI SIDE EFFECTS. THE ANTIBIOTIC PRESCRIBED MAY CAUSE PORT-WINE STANDING IN THE STOOL AND CAN APPEAR IF THERE IS BLOOD IN THE STOOL. THIS IS A SIDE EFFECT OF MEDICATION IN THE WAY IT IS DIGESTED. SEE YOUR DOCTOR IN 3 DAYS IF YOUR SYMPTOMS NOT RESOLVING. YOU MAY CONTINUE [id number] TYLENOL DIRECTED FOR DISCOMFORT. Patient Language: Slovenian Prescriptions: New cefdinir 300 mg capsule 300 mg PO Q12H 10 Days Qty: 20 0RF Rx Instructions: PATIENT REPORTS TOLERATING THIS MEDICATION WELL IN THE PAST DESPITE PENICILLIN ALLERGY prednisone 20 mg tablet 40 mg PO DAILY 5 Days Qty: 10 0RF No Action (DME) blood-glucose meter [True Metrix Glucose Meter] Misc See Rx Instructions .ROUTE .MEDSUPPLY Qty: 1 0RF Rx Instructions: use to test blood sugar armodafinil 150 mg tablet 150 mg PO QAM Qty: 30 1RF glipizide 10 mg tablet 10 mg PO DAILY Qty: 90 3RF gabapentin 300 mg capsule 300 mg PO QID PRN (Reason: neuropathic pain) Qty: 240 2RF acarbose 25 mg tablet See Rx Instructions .ROUTE .COMPLEX Qty: 270 1RF Dose Instruction: TAKE 1 TABLET BY MOUTH THREE TIMES DAILY. START OF EACH MEAL Rx Instructions: TAKE 1 TABLET BY MOUTH THREE TIMES DAILY. START OF EACH MEAL Jardiance 25 mg tablet 25 mg PO QAM Qty: 90 1RF insulin degludec [Tresiba FlexTouch U-100] 100 unit/mL (3 mL) insulin pen 20 unit subcut QAM Qty: 15 5RF Trulicity 1.5 mg/0.5 mL pen injector 1.5 mg subcut WEEKLY Qty: 6 3RF (DME) True Metrix Glucose Test Strip Strip See Rx Instructions .ROUTE .MEDSUPPLY Qty: 100 5RF Rx Instructions: use one strip to test blood sugar three times a day Trulicity 0.75 mg/0.5 mL pen injector 0.75 mg subcut WEEKLY Qty: 2 0RF ergocalciferol (vitamin D2) 1,250 mcg (50,000 unit) capsule 50,000 unit PO MONTHLY Qty: 14 0RF Rx Instructions: Weekly for 8 weeks then switch to monthly (DME) insulin syringe-needle U-100 [BD Insulin Syringe Ultra-Fine] 0.5 mL 31 gauge x 516 syringe See Rx Instructions .Route Qty: 100 1RF Rx Instructions: As directed, daily liraglutide [Victoza 3-Andrew] 0.6 mg/0.1 mL (18 mg/3 mL) pen injector See Rx Instructions subcut .COMPLEX Qty: 9 1RF Rx Instructions: inject 0.6mg subcutaneously once daily x 7 days; then 1.2mg daily, not to exceed 1.8mg/day subcut Trulicity 1.5 mg/0.5 mL pen injector 1.5 mg subcut WEEKLY Qty: 2 0RF Soliqua 100/33 100 unit-33 mcg/mL insulin pen 30 unit subcut QAM Qty: 15 3RF hydrocodone-acetaminophen 5-325 mg tablet 1 tablet PO Q8H PRN (Reason: pain) Qty: 50 0RF lisinopril 5 mg tablet 5 mg PO DAILY Qty: 90 1RF Follow-up/Referrals: Moris Lima MD [Primary Care Provider] - Time of Disposition: 09:18
== END 2024-05-28 09:20 | disposition home or self-care (01) ==
PROVIDERS: Emergency Provider Nurse Practitioner Family; PCP Family Medicine
DX: H66.002 Acute suppurative otitis media without spontaneous rupture of ear drum, left ear (principal); J02.9 Acute pharyngitis, unspecified; F17.210 Nicotine dependence, cigarettes, uncomplicated; E11.9 Type 2 diabetes mellitus without complications; Z79.4 Long term (current) use of insulin; Z79.84 Long term (current) use of oral hypoglycemic drugs; Z79.85 Long-term (current) use of injectable non-insulin antidiabetic drugs; G25.81 Restless legs syndrome
CPT/HCPCS: 99213; G0463

== ENCOUNTER 2024-07-18 10:02 | Outpatient (CLI) | payer MEDICARE, MEDICAID, SELFPAY ==
--- OUTSIDE RECORDS SUMMARY | 2024-07-18 10:54 | XMS_ITS | Patient Health Record ---
Author Organization [facility] Address [address] [place] [address] Care Team Providers Care Duplicator Punch Operator Name Role Phone Leticia Vazquez Primary Care Provider Reason For Referral No Information Social History Sex Assigned At : Social History Observation Description Sex Assigned At Female PRAPARE Question Answer Notes Date Completed/Updated: 06/05/2024 What is your current housing situation? I have h ousing Are you worried about losing your housing? No What is the highest level of school that you have finished? More than high school What is your current work situation? Oth erwise unemployed but not seeking work (ex. student, retired, disabled, unpaid primary care consultant) In the past year, have you o r any family members you live with been unable to get any of the following when it was really needed? Check all that apply I do not have problems meeting my needs Has lack of transportation k ept you from medical appointments, meetings, work or from getting things needed for daily living? No How often do you see or talk to people that you care about and feel close to? (For example: talking to friends on the phone, visiting friends or family, going to christian or club meetings) More than 5 times a week How stressed are you? Stress is when someone feels tense, nervous, anxious, or can\t sleep at night because their mind is troubled A little bit In the past year have you sp ent more than 2 nights in a row in a usp, assisted, retirement center, or juvenile correctional facility? No Do you feel physically and e motionally safe where you currently live? Yes In the past year, have you b een afraid of your partner or ex-partner? No PRAPARE Score: 4 Encounters Encounter Location Date Provider Diagnosis [address] [place] [address] 06/07/2024 Leticia Vazquez Plan Of Treatment No Information
--- OUTSIDE RECORDS SUMMARY | 2024-07-18 10:54 | XMS_ITS | Clinical Summary ---
Author Organization [facility] Address [address] [place] [address] Phone Care Team Providers Care Desk Editor Name Role Phone Sarahsyd Wayne DO Primary Care Provider [phone] Allergies Active Allergy Reactions Criticality Noted Date [...] more severe pain. 15 Tab 9 Active Additional Information Patient not taking.Reported on 07/10/2024 nicotine (NICODERM CQ) 21 MG/24HR PATCH 24 HR 1 Patch by Transdermal route daily. 30 Patch 9 Active Additional Information Patient not taking.Reported on 07/10/2024 meloxicam (MOBIC) 15 MG Tablet Take 15 mg by mouth daily. INSTRUCTED PATIENT TO HOLD FOR 7 DAYS PRIOR TO 07/10/24 SURGERY Active Active Problems Problem Noted Date Diagnosed Date De Quervain's tenosynovitis, left 07/10/2024 Neuropathy 08/14/2018 Narcolepsy 08/14/2018 Type 2 diabetes mellitus wit h diabetic polyneuropathy, without long-term current use of insulin 08/13/2018 Sepsis 08/13/2018 Cellulitis of right foot 08/13/2018 Tobacco dependence syndrome 08/13/2018 Restless leg syndrome 08/13/2018 Foreign body in foot, right, infected 08/10/2018 Somatic symptom disorder, pe rsistent, severe, with predominant pain 03/16/2018 Chronic pain syndrome 03/16/2018 Encounters Date Type Department Care Team Description 07/10/2024 12:23 PM CDT [facility] [address] [place] [address] Deniz Cisneros, PARTICIPANT ADMINISTRATOR, PRACTICE SUPPORT SPECIALIST 07/10/2024 12:10 PM CDT - 07/10/2024 1:40 PM CDT [facility] [address] [place] [address] Romero Allen MD RELEASE FIRST EXTENSOR TENDON SHEATH LEFT WRIST 07/10/2024 9:49 AM CDT - 07/10/2024 2:52 PM CDT [facility] Preop[facility]Pacu [facility] [address] [place] [address] Romero Allen MD De Quervain's tenosynovitis, left Discharge Disposition: Discharged to home or Selfcare 07/10/2024 Travel 07/05/2024 Travel 07/03/2024 9:05 AM CDT - 07/03/2024 11:59 PM CDT [facility] Diagnostic Radiology [address] [place] [address] Romero Allen MD Discharge Disposition: Discharged to home or Selfcare 07/03/2024 8:45 AM CDT - 07/03/2024 9:04 AM CDT [facility] Cardiology Services [address] [place] [address] Romero Allen MD Discharge Disposition: Discharged to home or Selfcare 07/03/2024 Travel 07/02/2024 Transcribe Orders [facility] Central Scheduling [address] [place] [address] Romero Allen MD Preoperative testing (Primary Dx); Pain in both wrists; Localized primary osteoarthritis of carpometacarpal (CMC) joint, unspecified laterality; Type 2 diabetes mellitus without complication, without long-term current use of insulin; Radial styloid tenosynovitis from Last 3 Months Family History Medical History Relation Name Comments Heart Attack Father Hypertension Mother Kidney Disease Mother Relation Name Status Comments Father Alive Mother Alive Social History Tobacco Use Types Packs/Day Years Used Date Smoking Tobacco: Every Day Cigarettes 1 27.9 Started: 08/08/1996 Smokeless Tobacco: Never Tobacco Cessation:Ready to Q uit: Not Asked; Counseling Given: Not Answered Alcohol Use Standard Drinks/Week Comments Yes 0 (1 standard drink = 0.6 oz pur e alcohol) very rarely Sexually Active Control Partners Comments Yes Comments No Sex and Gender Information Value Date Recorded Sex Assigned at Not on file Legal Sex Female 10:29 PM CDT Gender Identity Not on file Sexual Orientation Not on file Last Filed Vital Signs Vital Sign Reading Time Taken Comments Blood Pressure 123/86 07/10/2024 2:25 PM CDT Pulse 83 07/10/2024 2:25 PM CDT Temperature 36.3 C (97.3 F) 07/10/2024 2:10 PM CDT Respiratory Rate 16 07/10/2024 2:10 PM CDT Oxygen Saturation 96% 07/10/2024 2:25 PM CDT Inhaled Oxygen Concentration - - Weight 103.6 kg (228 lb 8 oz) 07/10/2024 10:11 A M CDT Height 175.3 cm (5' 9) 07/10/2024 10:11 AM CDT Body Mass Index 33.74 07/10/2024 10:11 AM CDT Plan of Treatment Health Maintenance Due Date Last Done Comments Diabetes: Eye Exam 1978 Hepatitis C Virus (HCV) Screening 1978 Mammogram 1978 Hepatitis B Immunization (1 of 3 - 19+ 3-dose series) 1997 Pneumococcal Immunization Combined (1 of 2 - PCV) 1997 Pap Smear 1999 Cervical Cancer Screening (CCS) 01/09/2008 HPV/Cotest 01/09/2008 Discussion re Starting/Frequency of Mammograms 2018 Diabetes: Foot Exam 08/14/2019 08/13/2018 Cologuard 2023 Immunochemical Fecal Occult Blood 2023 SARS-COV-2 Immunization ( season) 2023 10/01/2020, 09/10/2020 Influenza Immunization (Season Ended) 2024 Diabetes: Hemoglobin A1c 01/03/2025 025, 01/01/2020, 08/15/2018, Additional history exists Diabetes: Nephropathy Screening 07/03/2025 07/03/2024, 01/01/2020, 08/15/2018, Additional history exists Colonoscopy 02/23/2031 02/23/2021 Colorectal Cancer Screening 02/23/2031 Respiratory Syncytial Virus (RSV) Immunization (Adult) (1 - 1-dose 75+ series) 2053 DTaP/Tdap/Td Immunization Discontinued 07/07/2012 TdaP Immunization Completed 07/07/2012 Human Papillomavirus (HPV) Immunization Aged Out No longer eligible based on patient's age to complete this topic Meningococcal Immunization (ACWY) Aged Out No longer eligible based on patient's age to complete this topic Rotavirus Immunization Aged Out No lo nger eligible based on patient's age to complete this topic Procedures Procedure Name Priority Date/Time Associated Diagnosis Comments POCT GLUCOSE Routine 07/10/2024 1:18 PM CDT TENOTOMY ELBOW LATERAL/MEDIAL DEBRIDE REPAIR 07/10/2024 12:03 PM CDT MODERATE DEGENERATIVE JOINT DISEASE LEFT CARPOMETACARPAL JOINT Special Needs 5'9 231LB DM (HGB A1C - 12.2 ON 07/03,) NARCOLEPSY, NEEDS PREG TEST IN DS, SMOKER, CHRONIC BACK PAIN WITH HYDROCODONE PRN TENOTOMY ELBOW LATERAL/MEDIAL DEBRIDE OPEN 07/10/2024 12:03 PM CDT MODERATE DEGENERATIVE JOINT DISEASE LEFT CARPOMETACARPAL JOINT Special Needs 5'9 231LB DM (HGB A1C - 12.2 ON 07/03,) NARCOLEPSY, NEEDS PREG TEST IN DS, SMOKER, CHRONIC BACK PAIN WITH HYDROCODONE PRN TENOTOMY ELBOW LATERAL/MEDIAL PERCUTANEOUS 07/10/2024 12:03 PM CDT MODERATE DEGENERATIVE JOINT DISEASE LEFT CARPOMETACARPAL JOINT Special Needs 5'9 231LB DM (HGB A1C - 12.2 ON 07/03,) NARCOLEPSY, NEEDS PREG TEST IN DS, SMOKER, CHRONIC BACK PAIN WITH HYDROCODONE PRN POCT GLUCOSE Routine 07/10/2024 10:32 AM CDT POCT URINE HCG () Routine 07/10/2024 10:00 AM CDT XR CHEST 2 VIEWS Routine 07/03/2024 9:12 AM CDT Preoperative testing Pain in both wrists Localized primary osteoarthritis of carpometacarpal (CMC) joint, unspecified laterality Type 2 diabetes mellitus without complication, without long-term current use of insulin Radial styloid tenosynovitis CBC WITH AUTO DIFFERENTIAL Routine 07/03/2024 9:01 AM CDT Preoperative testing Pain in both wrists Localized primary osteoarthritis of carpometacarpal (CMC) joint, unspecified laterality Type 2 diabetes mellitus without complication, without long-term current use of insulin Radial styloid tenosynovitis COMPLETE BLOOD COUNT (CBC) WITH DIFF Routine 07/03/2024 9:01 AM CDT Preoperative testing Pain in both wrists Localized primary osteoarthritis of carpometacarpal (CMC) joint, unspecified laterality Type 2 diabetes mellitus without complication, without long-term current use of insulin Radial styloid tenosynovitis CMP (COMPREHENSIVE METABOLIC PANEL) Routine 07/03/2024 9:01 AM CDT Preoperative testing Pain in both wrists Localized primary osteoarthritis of carpometacarpal (CMC) joint, unspecified laterality Type 2 diabetes mellitus without complication, without long-term current use of insulin Radial styloid tenosynovitis HEMOGLOBIN A1C W/ ESTIMATED GLUCOSE Routine 07/03/2024 9:01 AM CDT Preoperative testing Pain in both wrists Localized primary osteoarthritis of carpometacarpal (CMC) joint, unspecified laterality Type 2 diabetes mellitus without complication, without long-term current use of insulin Radial styloid tenosynovitis EKG 12 LEAD Routine 07/03/2024 8:54 AM CDT Preoperative testing Pain in both wrists Localized primary osteoarthritis of carpometacarpal (CMC) joint, unspecified laterality Type 2 diabetes mellitus without complication, without long-term current use of insulin Radial styloid tenosynovitis from Last 3 Months Results * (ABNORMAL) POCT Glucose (07/10/2024 1:18 PM CDT) Only the most recent of2 resultswithin the time period is included. GLUCOSE,BEDSID E POCT 184(H) 70 - 99 mg/dL 07/10/2024 1:24 PM CDT [facility] Comment:RN Notified Blood 07/10/2024 1:18 PM CDT 07/10/2024 1:24 PM CDT us None Provider POINT OF CARE TESTING Final Resu lt [facility] [place] [address] * POCT Urine HCG () (07/10/2024 10:00 AM CDT) POC URINE Negative POC URINE CONTROL Central Office Worker Pass Urine 07/10/2024 10:0 0 AM CDT us Romero Allen MD POINT OF CARE TESTING (MANUAL) F inal Result * XR CHEST 2 VIEWS (07/03/2024 9:12 AM CDT) Anatomical Region Laterality Modality Chest N/A Digital Radiogra phy 07/09/2024 2:01 PM CDT Impressions 07/09/2024 2:04 PM CDT IMPRESSION: No acute cardiopulmonary abnormality. Narrative 07/09/2024 2:04 PM CDT EXAM DESCRIPTION: XR CHEST 2 VIEWS REASON FOR STUDY: Preop for wrist surgery next Monday. Chest congestion x 1 week. No pain. No surgery. Current smoker TECHNIQUE: There are 2 radiographic view(s) of the chest. COMPARISON: No prior FINDINGS: LUNGS: Pulmonary vascularity appears normal. No confluent infiltrate or effusion. Costophrenic angles are sharp. HEART/MEDIASTINUM: Cardiac silhouette normal in size. Mediastinal and hilar contours appear normal. LINES/TUBES: None. BONES: Moderate spondylosis thoracic spine. THIS IS AN ELECTRONICALLY VERIFIED FINAL REPORT 07/09/2024 2:01 PM - Electronically signed by Kyle Muñoz M.D. MJ: BRIAN Report ID: [id number] Reading Location: [id number] Procedure Note Kyle Muñoz MD - 07/09/2024 EXAM DESCRIPTION: XR CHEST 2 VIEWS REASON FOR STUDY: Preop for wrist surgery next Monday. Chest congestion x 1 week. No pain. No surgery. Current smoker TECHNIQUE: There are 2 radiographic view(s) of the chest. COMPARISON: No prior FINDINGS: LUNGS: Pulmonary vascularity appears normal. No confluent infiltrate or effusion. Costophrenic angles are sharp. HEART/MEDIASTINUM: Cardiac silhouette normal in size. Mediastinal and hilar contours appear normal. LINES/TUBES: None. BONES: Moderate spondylosis thoracic spine. THIS IS AN ELECTRONICALLY VERIFIED FINAL REPORT 07/09/2024 2:01 PM - Electronically signed by Kyle Muñoz M.D. MJ: BRIAN Report ID: [id number] Reading Location: [id number] IMPRESSION: No acute cardiopulmonary abnormality. us Romero Allen MD IMG DIAGNOSTIC ORDERABLES Final Result * (ABNORMAL) HEMOGLOBIN A1C W/ ESTIMATED GLUCOSE (07/03/2024 9:01 AM CDT) HGB-A1C 12.2(H) 4.0 - 6.0 % 07/03/2024 11:56 AM CDT [facility] Est Average Glucose 303.4 mg/dL 07/03/2024 11:56 AM CDT [facility] Blood Venipuncture / Unknown 07/03/2024 9:01 AM CDT 07/03/2024 10:11 AM CDT Narrative [facility] - 07/03/2024 11:56 AM CDT HEMOGLOBIN A1C: DIABETIC PATIENTS: WELL-CONTROLLED: 6.2 - 7.0 INTERMEDIATE WELL-CONTROLLED: 7.0 - 9.0 POORLY-CONTROLLED: >9.0 Specimens containing greater than 5% of Hemoglobin F may result in lower than expected % HbA1C results. us Romero Allen MD CHEMISTRY ORDERABLES Final Resul t [facility] [address] [place] [address] * CBC WITH AUTO DIFFERENTIAL (07/03/2024 9:01 AM CDT) WBC 9.97 4.00 - 12.00 10(3)/mcL 07/03/2024 10:14 AM CDT [facility] RBC 5.14 3.80 - 5.30 10(6)/mcL 07/03/2024 10:14 AM CDT [facility] HEMOGLOBIN (HGB) 15.8 12.0 - 15.8 g/dL 07/03/2024 10:14 AM CDT [facility] HEMATOCRIT (HCT) 45.1 36.0 - 47.0 % 07/03/2024 10:14 AM CDT [facility] MCV 87.7 82.0 - 96.0 fL 07/03/2024 10:14 AM CDT [facility] MCH 30.7 26.0 - 34.0 pg 07/03/2024 10:14 AM CDT [facility] MCHC 35.0 31.0 - 36.0 g/dL 07/03/2024 10:14 AM CDT [facility] PLATELET COUNT 217 140 - 440 10(3)/mcL 07/03/2024 10:14 AM CDT [facility] RDW 13.4 11.8 - 15.5 % 07/03/2024 10:14 AM CDT [facility] MPV 10.4 9.7 - 12.4 fL 07/03/2024 10:14 AM CDT [facility] NEUTROPHILS 72.5 47.0 - 73.0 % 07/03/2024 10:14 AM CDT [facility] LYMPHOCYTES 19.8 18.0 - 42.0 % 07/03/2024 10:14 AM CDT [facility] MONOCYTES 5.3 4.0 - 12.0 % 07/03/2024 10:14 AM CDT [facility] EOSINOPHILS 1.6 0.0 - 5.0 % 07/03/2024 10:14 AM CDT [facility] BASOPHILS 0.8 0.0 - 1.0 % 07/03/2024 10:14 AM CDT [facility] ABSOLUTE NEUTROPHILS 7.23 1.60 - 7.70 10(3)/[facility] 07/03/2024 10:14 AM CDT [facility] ABSOLUTE LYMPHOCYTES 1.97 1.30 - 3.20 10(3)/[facility] 07/03/2024 10:14 AM CDT [facility] ABSOLUTE MONOCYTES 0.53 0.20 - 1.00 10(3)/[facility] 07/03/2024 10:14 AM CDT [facility] ABSOLUTE EOSINOPHIL 0.16 0.00 - 0.40 10(3)/[facility] 07/03/2024 10:14 AM CDT [facility] ABSOLUTE BASOPHILS 0.08 0.00 - 0.10 10(3)/[facility] 07/03/2024 10:14 AM CDT [facility] NRBC PER 100 WBC 0 07/04/19 10:14 AM CDT [facility] Blood Venipuncture / Unknown 07/03/2024 9:01 AM CDT 07/03/2024 10:11 AM CDT us Romero Allen MD HEMATOLOGY ORDERABLES Final Resu lt [facility] [address] [place] [address] * (ABNORMAL) CMP (COMPREHENSIVE METABOLIC PANEL) (07/03/2024 9:01 AM CDT) SODIUM 138 136 - 145 mmol/L 07/03/2024 10:36 AM CDT [facility] POTASSIUM 4.0 3.5 - 5.1 mmol/L 07/03/2024 10:36 AM CDT [facility] CHLORIDE 105 98 - 107 mmol/L 07/03/2024 10:36 AM CDT [facility] CO2, VENOUS 22 22 - 30 mmol/L 07/03/2024 10:36 AM CDT [facility] ANION GAP 15.0 <18.0 mmol/L 07/03/2024 10:36 AM CDT [facility] GLUCOSE 284(H) 70 - 99 mg/dL 07/03/2024 10:36 AM CDT [facility] BUN 12 5 - 18 mg/dL 07/03/2024 10:36 AM CDT [facility] CREATININE, BLOOD 0.58(L) 0.60 - 1.00 mg/dL 07/03/2024 10:36 AM CDT [facility] BUN/CREATININE RATIO 21(H) 12 - 20 ratio 07/03/2024 10:36 AM CDT [facility] TOTAL PROTEIN 6.8 6.0 - 8.0 g/dL 07/03/2024 10:36 AM CDT [facility] ALBUMIN 4.2 3.5 - 5.0 g/dL 07/03/2024 10:36 AM CDT [facility] A/G RATIO 1.6 1.0 - 2.2 07/03/2024 10:36 AM CDT [facility] CALCIUM 8.8 8.7 - 10.5 mg/dL 07/03/2024 10:36 AM CDT [facility] T BILI 0.5 0.2 - 1.2 mg/dL 07/03/2024 10:36 AM CDT [facility] SGOT (AST) 24 <43 U/L 07/03/2024 10:36 AM CDT [facility] SGPT (ALT) 29 <56 U/L 07/03/2024 10:36 AM CDT [facility] ALKALINE PHOSPHATASE 80 40 - 150 U/L 07/03/2024 10:36 AM CDT [facility] IS THE PATIENT REQUIRED TO BE FASTING? No 07/03/2024 10:36 AM CDT [facility] GFR, ESTIMATED >60 >=60 07/03/2024 10:36 AM CDT [facility] Comment: Creatinine Clearance is the preferred criteria for selecting drug dose adjustments in renally impaired patients. The GFR is provided as additional pertinent clinical information. GFR is reported in mL/min/1.73 sq m. Calculation based on the Chronic Kidney Disease Epidemiology Collaboration (CKD- EPI) equation refit without adjustment for race. GFR, EST. >60 >=60 025 10:36 AM CDT [facility] GFR, EST. NONAFRICAN >60 >=60 07/03/2024 10:36 AM CDT [facility] Blood Venipuncture / Unknown 07/03/2024 9:01 AM CDT 07/03/2024 10:11 AM CDT us Romero Allen MD CHEMISTRY ORDERABLES Final Resul t [facility] [address] [place] [address] * EKG 12 LEAD (07/03/2024 8:54 AM CDT) Ventricular Rate 82 BPM EXTERNAL EKG Atrial Rate 82 BPM EXTERNAL EKG P-R Interval 152 ms EXTERNAL EKG QRS Duration 98 ms EXTERNAL EKG Q-T Duration 408 ms EXTERNAL EKG QTC CALCULATION 476 ms EXTERNAL EKG P [place] 36 degrees EXTERNAL EKG R [place] 36 degrees EXTERNAL EKG T [place] 21 degrees EXTERNAL EKG 07/03/2024 8:54 AM CDT Impressions EXTERNAL EKG - 07/11/2024 10:54 PM CDT Normal sinus rhythm Minimal voltage criteria for LVH, may be normal variant ( Taran product ) Poor R-wave progression Borderline ECG When compared with ECG of 14-AUG-2018 10:13, No significant change was found Confirmed by Jazmine Le ([id number]) on 07/11/2024 10:54:48 PM Narrative Procedure Note Jazmine Le MD PhD - 07/11/2024 IMPRESSION: Normal sinus rhythm Minimal voltage criteria for LVH, may be normal variant ( Taran product) Poor R-wave progression Borderline ECG When compared with ECG of 14-AUG-2018 10:13, No significant change was found Confirmed by Jazmine Le ([id number]) on 07/11/2024 10:54:48 PM Romero Allen MD IMG ECG ORDERABLES Final Result EXTERNAL EKG from Last 3 Months Insurance MEDICAID [place] MEDICARE C [employer] Advance Directives * Full Code (Latest Code Status on File) Date Activated Date Inactivated Comments 08/13/2018 10:41 PM 08/15/2018 4:37 PM CPR-Full Fernando atment: FULL ARREST: Attempt Resuscitation/CPR wit intubation and mechanical ventilation. PRE-ARREST: Use entire range of life support measures to stabilize the patient. Care Teams Desk Editor Relationship Specialty Start Date End Date Pepe Delcid DO [address] [id number] PCP - General Family Medicine 03/07/18
[2024-07-18 21:50] LABS: Hemoglobin A1C 11.2 % (<5.7)
== END 2024-07-18 10:03 | disposition home or self-care (01) ==
PROVIDERS: PCP Family Medicine; Visit Provider Family Medicine
DX: Z79.899 Other long term (current) drug therapy (principal)
CPT/HCPCS: 36415; 83036

== ENCOUNTER 2025-01-16 10:45 | Outpatient (RCR) | payer MEDICARE, MEDICAID, SELFPAY ==
[2024-11-20 09:45] VITALS: BMI 32.9
[2024-11-20 09:49] VITALS: BMI 32.9
[2025-01-16 10:55] VITALS: BMI 32.9
--- NOTE | 2025-01-16 13:14 | PCDIET ---
01/16/25: MNT appts for 2024 completed. Faxed referral request to provider for MNT and DSMT follow up (attended groups in 2018)
== END 2025-02-03 12:52 | disposition home or self-care (01) ==
LOC: ANHDMC 10:45
PROVIDERS: PCP Family Medicine; Visit Provider Family Medicine
DX: E11.9 Type 2 diabetes mellitus without complications (principal); Z71.3 Dietary counseling and surveillance
CPT/HCPCS: 97802; 97803

== ENCOUNTER 2025-01-16 12:24 | Outpatient (CLI) | payer MEDICARE, MEDICAID, SELFPAY ==
[2025-01-16 21:36] LABS: Hemoglobin A1C 8.9 % (<5.7)
== END 2025-01-16 12:25 | disposition home or self-care (01) ==
PROVIDERS: PCP Family Medicine; Visit Provider Family Medicine
DX: Z79.899 Other long term (current) drug therapy (principal)
CPT/HCPCS: 36415; 83036